=== PATIENT | female | born 1955 | race Caucasian/White ===

== ENCOUNTER 2018-10-08 22:16 | Emergency (ER) | payer BC ==
[2018-10-08] MEDS ORDERED: HYDROmorphone 0.5 MG/0.5 ML SYRINGE IVP STA (22:50)
[2018-10-08] MEDS ORDERED: ETOMIDATE 2 MG/ML 10 ML VIAL IVP STA (23:32)
--- NOTE | 2018-10-08 23:56 | XR ---
EXAM: XR Right Humerus, single view CLINICAL HISTORY: Pain TECHNIQUE: Frontal view of the right humerus. COMPARISON: No relevant prior studies available. FINDINGS: Bones/joints: No acute fracture. Soft tissues: Unremarkable. IMPRESSION: Normal right humerus x-ray.
--- NOTE | 2018-10-08 23:56 | XR ---
EXAM: XR Right Forearm, 2 Views CLINICAL HISTORY: Pain TECHNIQUE: Frontal and lateral views of the right forearm. COMPARISON: No relevant prior studies available. FINDINGS: Bones/joints: Unremarkable. No acute fracture. No dislocation. Soft tissues: Unremarkable. IMPRESSION: Normal right forearm x-rays.
--- NOTE | 2018-10-08 23:57 | XR ---
EXAM: XR Right Shoulder Complete, 2 or More Views CLINICAL HISTORY: Pain TECHNIQUE: Two or more views of the right shoulder. COMPARISON: No relevant prior studies available. FINDINGS: Bones/joints: Anterior dislocation of the shoulder. Question fracture fragment of the humeral head on Y-view. Soft tissues: No soft tissue gas or foreign body. IMPRESSION: Anterior dislocation of the shoulder. Question fracture fragment of the humeral head on Y-view.
--- NOTE | 2018-10-08 23:58 | XR ---
EXAM: XR Right Elbow Complete, 3 or More Views CLINICAL HISTORY: Pain TECHNIQUE: Frontal, lateral and oblique views of the right elbow. COMPARISON: No relevant prior studies available. FINDINGS: Bones/joints: Unremarkable. No acute fracture. No dislocation. Soft tissues: Unremarkable. IMPRESSION: Normal right elbow x-rays.
[2018-10-09] MEDS ORDERED: DIAZEPAM 5 MG/ML 2 ML INJ IVP STA (00:10)
[2018-10-09] MEDS ORDERED: HYDROmorphone 1 MG/ML 1 ML SYRINGE IVP STA (00:10)
--- NOTE | 2018-10-09 00:52 | XR ---
EXAM: XR Right Shoulder Complete, 2 or More Views CLINICAL HISTORY: Pain TECHNIQUE: Two or more views of the right shoulder. COMPARISON: X-ray dated 10/08/2017 at 2309 FINDINGS: Bones/joints: Successful reduction of the previously seen anterior dislocation of the right shoulder. No fracture fragment identified. Soft tissues: Unremarkable. IMPRESSION: Successful reduction of the previously seen anterior dislocation of the right shoulder. No fracture fragment identified.
[2018-10-09] MEDS ORDERED: SODIUM CHLORIDE 0.9% 1,000 ML IV STA (03:14)
[2018-10-09 03:47] LABS: Basophils % (A) 0 %; Eosinophils # (A) 0.1 k/uL (0-0.7); Eosinophils % (A) 1 %; HGB 13.1 gm/dL (11.4-16.0); Lymphocytes # (A) 0.9 k/uL (1.0-4.8); Lymphocytes % (A) 9 %; MCH 29.1 pg (25.0-35.0); MCHC 33.6 g/dL (31.0-37.0); MCV 86.8 fL (80.0-100.0); Mean Platelet Volume 6.9; Monocytes # (A) 0.4 k/uL (0-1.0); Monocytes % (A) 4 %; Neutrophils # (A) 8.3 k/uL (1.3-7.7); Neutrophils % (A) 85 %; Platelet Count 228 k/uL (150-450); RBC 4.49 m/uL (3.80-5.40); RDW 12.4 % (11.5-15.5); WBC 9.8 k/uL (3.8-10.6)
[2018-10-09 03:58] LABS: ALT 35 U/L (9-52); AST 52 U/L (14-36); African American GFR (CKD) >90 (>60 ml/min/1.73 sqM); Albumin 4.3 g/dL (3.5-5.0); Alkaline Phosphatase 83 U/L (38-126); Anion Gap 9 mmol/L; Blood Urea Nitrogen 21 mg/dL (7-17); Carbon Dioxide 26 mmol/L (22-30); Chloride 99 mmol/L (98-107); Glucose 117 mg/dL (74-99); Potassium 4.4 mmol/L (3.5-5.1); Sodium 134 mmol/L (137-145); Total Bilirubin 0.7 mg/dL (0.2-1.3); Total Protein 6.8 g/dL (6.3-8.2)
--- NOTE | 2018-10-09 04:42 | ED ---
General Adult HPI - General Source: patient, EMS, RN notes reviewed, old records reviewed Mode of arrival: EMS Limitations: physical limitation <Americo Winchester - Last Filed: 10/09/18 17:30> <Kt Vasquez - Last Filed: 10/10/18 22:39> - General Chief complaint: Fall Stated complaint: Rt arm injury Time Seen by Provider: 10/08/18 22:38 - History of Present Illness Initial comments: 63-year-old female patient, also history of rheumatoid arthritis, Sjogren's, hypertension presents ED after a slip and fall. Patient was reportedly on her hands and knees washing the floor. When patient went to stand up he slipped falling on her right shoulder and forearm. Patient states that she is not standing at this time, was just starting her ascemt. She denies any trauma to head or neck. Patient primary complaint is right shoulder pain. Denies other complaints at this time. Systemic: Pt denies fatigue, fever/chills, rash. Pt denies weakness, night sweats, weight loss. Neuro: Pt denies headache, visual disturbances, syncope or pre-syncope. HEENT: Pt denies ocular discharge or irritation, otalgia, rhinorrhea, pharyngitis or notable lymphadenopathy. Cardiopulmonary: Pt denies chest pain, SOB, heart palpitations, dyspnea on exertion. Abdominal/GI: Pt denies abdominal pain, n/v/d. : Pt denies dysuria, burning w/ urination, frequency/urgency. Denies new onset urinary or bowel incontinence. MSK: Pt denies myalgia, loss of strength or function in extremities. Neuro: Pt denies new onset weakness. (Americo Winchester) - Related Data Home Medications Medication Instructions Recorded Confirmed Atenolol [Tenormin] 50 mg PO DAILY 05/18/15 05/18/15 Dextroamphetamine/Amphetamine 20 mg PO DAILY PRN 05/18/15 05/20/15 [Adderall] Hydroxychloroquine Sulfate 200 mg PO BID 05/18/15 05/20/15 [Plaquenil] Isosorbide Mononitrate [Isosorbide 30 mg PO DAILY 05/18/15 05/18/15 Mononitrate ER] Pantoprazole Sodium [Protonix] 40 mg PO DAILY 05/18/15 05/18/15 Simvastatin [Zocor] 40 mg PO HS 05/18/15 05/18/15 Aspirin 324 mg PO ONCE 05/20/15 05/20/15 Allergies Allergy/AdvReac Type Severity Reaction Status Date / Time codeine AdvReac Nausea & Verified 05/18/15 14:20 Vomiting Review of Systems ROS Other: All systems not noted in ROS Statement are negative. <Americo Winchester - Last Filed: 10/09/18 17:30> ROS Other: All systems not noted in ROS Statement are negative. <Kt Vasquez - Last Filed: 10/10/18 22:39> ROS Statement: Those systems with pertinent positive or pertinent negative responses have been documented in the HPI. Past Medical History Past Medical History: GERD/Reflux, Hyperlipidemia, Hypertension, Osteoarthritis (OA), Rheumatoid Arthritis (RA) Additional Past Medical History / Comment(s): disc problems in neck, Sjogren's History of Any Multi-Drug Resistant Organisms: None Reported Past Surgical History: Appendectomy, Section, Ear Surgery, Hysterectomy, Orthopedic Surgery Additional Past Surgical History / Comment(s): right rotator cuff repaired, ear surg., vocal cord nodule removed Past Anesthesia/Blood Transfusion Reactions: Motion Sickness, Postoperative Naus ea & Vomiting (PONV) Past Psychological History: ADD/ADHD Smoking Status: Former smoker Past Alcohol Use History: None Reported Past Drug Use History: None Reported - Past Family History Mother Family Medical History: No Reported History <Americo Winchester - Last Filed: 10/09/18 17:30> General Exam Limitations: physical limitation <Americo Winchester - Last Filed: 10/09/18 17:30> - General Exam Comments Initial Comments: Constitutional: NAD, AOX3, Pt has pleasant affect. HEENT: NC/AT, trachea midline, neck supple, no lymphadenopathy. Posterior pharynx non erythematous, without exudates. External ears appear normal, without discharge. Mucous membranes moist. Eyes PERRLA, EOM intact. There is no scleral icterus. No pallor noted. Cardiopulmonary: RRR, no murmurs, rubs or gallops, no JVD noted. Lungs CTAB in anterior and posterior wilson. No peripheral edema. Abdominal exam: Abdomen soft and non-distended. Abdomen non-tender to palpation in all 4 quadrants. Bowel sounds active in LLQ. No hepatosplenomegaly. No ecchymosis Neuro: CN II-XII grossly intact. No nuchal rigidity. No raccon eyes, no delacruz sign, no hemotympanum. No cervical spinal tenderness. MSK: Right shoulder additionally displayed findings consistent with anterior dislocation. Patient does have decreased sensation and forearm and hand. Shoulder was reduced with attending physician Dr. Gardner. Radial pulse +2, cap illary refill <2 seconds. Patient continues to have decreased sensation and forearm and hand as well as decreased ROM of hand and digits. No posterior calf tenderness bilaterally, homans sign negative bilaterally. Posterior tibialis and radial pulse +2 bilaterally. Sensation intact in upper and lower extremities. Full active ROM in lower extremities, 5/5 stregnth. (Americo Winchester) Course Vital Signs 10/08/18 10/09/18 10/09/18 22:18 00:01 00:06 Temperature 97.5 F L Pulse Rate 100 100 96 Respiratory 20 20 20 Rate Blood Pressure 103/64 126/68 132/73 O2 Sat by Pulse 96 99 100 Oximetry 10/09/18 10/09/18 10/09/18 00:10 00:15 00:20 Temperature Pulse Rate 97 96 92 Respiratory 20 11 L 14 Rate Blood Pressure 153/79 96/54 144/78 O2 Sat by Pulse 99 93 L 95 Oximetry 10/09/18 10/09/18 10/09/18 00:36 01:15 01:52 Temperature 97.7 F 98.2 F Pulse Rate 98 90 101 H Respiratory 22 18 18 Rate Blood Pressure 133/78 123/73 124/64 O2 Sat by Pulse 98 97 98 Oximetry 10/09/18 10/09/18 03:33 05:09 Temperature 98.3 F Pulse Rate 100 92 Respiratory 18 16 Rate Blood Pressure 113/68 103/55 O2 Sat by Pulse 98 98 Oximetry Procedures - [place] Protocol (Time Out) Patient Identification (2 identifiers required): Chart, Verbal, Arm Band, Name, Birthdate 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 Patient was reportedly on her hands and knees washing the floor. When patient went to stand up he slipped falling on her right shoulder and forearm. Patient states that she is not standing at this time, was just starting her ascemt. She denies any trauma to head or neck. Patient primary complaint is right shoulder pain. Denies other complaints at this time. Patient vital signs stable, afebrile. Physical exam displayed: Right shoulder additionally displayed findings consistent with anterior dislocation. Patient does have decreased sensation and forearm and hand. Shoulder was reduced with attending physician Dr. Gardner. Radial pulse +2, capillary refill <2 seconds. Patient continues to have decreased sensation and forearm and hand as well as decreased ROM of hand and digits. Initial plain films of shoulder displayed anterior dislocation. Plain film elbow humerus and forearm did not display acute process. Repeat shoulder x-ray displayed successful reduction. CTA of right shoulder displayed no arterial injury, mild stranding noted about the right subclavian/axillary artery vein which may be posttraumatic. Successful postreduction of the previously seen anterior distal patient right shoulder. Flattening suggesting Hill-Sachs deformity. Patient placed in a shoulder sling. Case was discussed with orthopedic consult Dr. Orellana extensively with attending physician Dr. Gardner in regards to patient's range of motion and sensation deficit of hand. Dr. Orellana recommendation was to discharge patient he will see her in office and will continue to evaluate this complaint. Patient discharged in shoulder sling. (Americo Winchester) I saw this patient in conjunction with the physician account assistant. I performed independent history and physical exam. Agree with case management. Given the patient's persistent symptoms following the reduction, PA and myself discuss case and CT angiography the right upper extremity had been ordered. I then discussed case with Dr. Orellana, and the patient will follow in clinic. (Kt Vasquez) - Lab Data Lab Results 10/09/18 10/09/18 Range/Units 03:30 03:30 WBC 9.8 (3.8-10.6) k/uL RBC 4.49 (3.80-5.40) m/uL Hgb 13.1 (11.4-16.0) gm/dL Hct 39.0 (34.0-46.0) % MCV 86.8 (80.0-100.0) fL MCH 29.1 (25.0-35.0) pg MCHC 33.6 (31.0-37.0) g/dL RDW 12.4 (11.5-15.5) % Plt Count 228 (150-450) k/uL Neutrophils % 85 % Lymphocytes % 9 % Monocytes % 4 % Eosinophils % 1 % Basophils % 0 % Neutrophils # 8.3 H (1.3-7.7) k/uL Lymphocytes # 0.9 L (1.0-4.8) k/uL Monocytes # 0.4 (0-1.0) k/uL Eosinophils # 0.1 (0-0.7) k/uL Basophils # 0.0 (0-0.2) k/uL Sodium 134 L (137-145) mmol/L Potassium 4.4 (3.5-5.1) mmol/L Chloride 99 (98-107) mmol/L Carbon Dioxide 26 (22-30) mmol/L Anion Gap 9 mmol/L BUN 21 H (7-17) mg/dL Creatinine 0.75 (0.52-1.04) mg/dL Est GFR (CKD-EPI)AfAm >90 (>60 ml/min/1.73 sqM) Est GFR (CKD-EPI)NonAf 86 (>60 ml/min/1.73 sqM) Glucose 117 H (74-99) mg/dL Calcium 10.0 (8.4-10.2) mg/dL Total Bilirubin 0.7 (0.2-1.3) mg/dL AST 52 H (14-36) U/L ALT 35 (9-52) U/L Alkaline Phosphatase 83 (38-126) U/L Total Protein 6.8 (6.3-8.2) g/dL Albumin 4.3 (3.5-5.0) g/dL Disposition Is patient prescribed a controlled substance at d/c from ED?: No <Americo Winchester - Last Filed: 10/09/18 17:30> <Kt Vasquez - Last Filed: 10/10/18 22:39> Clinical Impression: Anterior shoulder dislocation Disposition: HOME SELF-CARE Condition: Stable Instructions (If sedation given, give patient instructions): Shoulder Dislocation (ED) Additional Instructions: Patient to adhere to previously discussed treatment plan and will take medication(s) as directed. Patient to follow up with PCP in 1-2 days. Patient to return to ED if symptoms do not improve. Continue to wear sling, follow with orthopedic consult tomorrow. Return to ER if condition worsens in any way. Referrals: Ana Maria Brooks MD [Primary Care Provider] - 1-2 days Jeronimo Orellana MD [Medical Doctor] - 1-2 days
--- NOTE | 2018-10-09 04:47 | CT ---
EXAM: CT Angiography of the Right Upper Extremity With Intravenous Contrast CLINICAL HISTORY: Pain TECHNIQUE: Axial computed tomographic angiography images of the right upper extremity with intravenous contrast using CT angiography protocol. CTDI is 0.085, 0.085, 2.4, 15.8 mGy and DLP is 555.3 mGy-cm. This CT exam was performed using one or more of the following dose reduction techniques: automated exposure control, adjustment of the mA and/or kV according to patient size, and/or use of iterative reconstruction technique. MIP reconstructed images were created and reviewed. COMPARISON: No relevant prior studies available. FINDINGS: VASCULATURE: Right subclavian artery: No acute findings. No occlusion or significant stenosis. Right axillary artery: No acute findings. No occlusion or significant stenosis. Right brachial artery: No acute findings. No occlusion or significant stenosis. UPPER EXTREMITY: Bones/joints: Flattening of the posterolateral aspect of the humeral head which may represent Hill-Sachs deformity. No dislocation. Small joint effusion. Soft tissues: Mild stranding noted about the right subclavian/axillary artery vein which may be post traumatic.. No abnormal contrast enhancement. IMPRESSION: 1. No arterial injury. Mild stranding noted about the right subclavian/axillary artery vein which may be post traumatic. 2. Status post successful reduction of the previously seen anterior dislocation of the right shoulder dislocation. Flattening of the posterolateral aspect of the right humeral head suggesting Hill-Sachs deformity.
[2018-10-09 05:19] VITALS: BP 103/55; PULSE 92; RESP 16; TEMP 98.3
--- NOTE | 2018-10-11 04:10 | CDI ---
Documentation Clarification OP Dear Americo ROSE, PAC Please provide Moderate Sedation stop time. Thank you, Марина Huber Movie Actor If you have any questions, please contact Ground Water Pump Installer at [phone] [facility]
== END 2018-10-09 05:36 | disposition home or self-care (01) ==
LOC: EC 22:16
DX: S43.004A Unspecified dislocation of right shoulder joint, initial encounter (principal); K21.9 Gastro-esophageal reflux disease without esophagitis; E78.5 Hyperlipidemia, unspecified; I10 Essential (primary) hypertension; F90.9 Attention-deficit hyperactivity disorder, unspecified type; Z98.890 Other specified postprocedural states; Z87.891 Personal history of nicotine dependence; Z87.39 Personal history of other diseases of the musculoskeletal system and connective tissue; Z79.82 Long term (current) use of aspirin; Z79.899 Other long term (current) drug therapy; Z88.5 Allergy status to narcotic agent; W01.0XXA Fall on same level from slipping, tripping and stumbling without subsequent striking against object, initial encounter; Y92.009 Unspecified place in unspecified non-institutional (private) residence as the place of occurrence of the external cause; Y93.E5 Activity, floor mopping and cleaning
CPT/HCPCS: 99285; 23650; 99152; 99153; 96374; 96376; 96361 ×2; 36415; 80053; 85025; 73020 ×2; 73060; 73070; 73090; 73206; J3360; J1170 ×2; Q9967

== ENCOUNTER 2019-01-30 09:29 | Emergency (ER) | payer BC ==
[2019-01-30 09:42] VITALS: TEMP 97.6
[2019-01-30] MEDS ORDERED: SODIUM CHLORIDE 0.9% 1,000 ML IV ONE (10:10)
[2019-01-30] MEDS ORDERED: ONDANSETRON 4 MG/2 ML VIAL IVP STA (10:10)
[2019-01-30] MEDS ORDERED: SODIUM CHLORIDE 0.9% 1,000 ML IV SCH (10:15)
--- NOTE | 2019-01-30 10:23 | ED ---
Nausea/Vomiting/Diarrhea HPI - General Source: patient Mode of arrival: wheelchair Limitations: no limitations <Viktoriya Vazquez - Last Filed: 01/30/19 14:56> <Neha Reveles - Last Filed: 02/01/19 22:00> - General Chief complaint: Nausea/Vomiting/Diarrhea Stated complaint: nausea Time Seen by Provider: 01/30/19 09:55 - History of Present Illness Initial comments: 63-year-old female with history of hypertension, hyperlipidemia presenting to the emergency department for evaluation of nausea 1 week. Patient states she has had nausea and decreased appetite for the past week. Patient denies vomiting or diarrhea patient denies abdominal pain she states she feels like she is up in her stomach. Patient denies any chest pain or any shortness of breath. Patient denies any headache dizziness or visual changes. Denies back pain dysuria urgency frequency or hematuria. Patient denies fevers. Patient denies any new medications. Remaining review of system negative. (Viktoriya Vazquez) - Related Data Home Medications Medication Instructions Recorded Confirmed Dextroamphetamine/Amphetamine 20 mg PO DAILY PRN 05/18/15 01/30/19 [Adderall] Hydroxychloroquine Sulfate 200 mg PO BID 05/18/15 01/30/19 [Plaquenil] Pantoprazole Sodium [Protonix] 40 mg PO HS 05/18/15 01/30/19 Simvastatin [Zocor] 40 mg PO HS 05/18/15 01/30/19 Escitalopram [Lexapro] 20 mg PO DAILY 01/30/19 01/30/19 Lisinopril [Zestril] 5 mg PO HS 01/30/19 01/30/19 Olopatadine HCl 1 applic BOTH EYES BID PRN 01/30/19 01/30/19 traMADol HCL 50 - 100 mg PO Q6H PRN 01/30/19 01/30/19 Previous Rx's Medication Instructions Recorded Ondansetron Odt [Zofran Odt] 4 mg PO Q8HR PRN 5 Days #15 tab 01/30/19 Allergies Allergy/AdvReac Type Severity Reaction Status Date / Time codeine AdvReac Nausea & Verified 01/30/19 09:39 Vomiting Review of Systems ROS Other: All systems not noted in ROS Statement are negative. <Viktoriya Vazquez - Last Filed: 01/30/19 14:56> ROS Other: All systems not noted in ROS Statement are negative. <Neha Reveles - Last Filed: 02/01/19 22:00> ROS Statement: Those systems with pertinent positive or pertinent negative responses have been documented in the HPI. Past Medical History Past Medical History: GERD/Reflux, Hyperlipidemia, Hypertension, Osteoarthritis (OA), Rheumatoid Arthritis (RA) Additional Past Medical History / Comment(s): disc problems in neck, Sjogren's History of Any Multi-Drug Resistant Organisms: None Reported Past Surgical History: Appendectomy, Section, Ear Surgery, Hysterectomy, Orthopedic Surgery Additional Past Surgical History / Comment(s): right rotator cuff repaired, ear surg., vocal cord nodule removed Past Anesthesia/Blood Transfusion Reactions: Motion Sickness, Postoperative Nausea & Vomiting (PONV) Past Psychological History: ADD/ADHD Smoking Status: Former smoker Past Alcohol Use History: None Reported Past Drug Use History: None Reported - Past Family History Mother Family Medical History: No Reported History <Viktoriya Vazquez - Last Filed: 01/30/19 14:56> General Exam Limitations: no limitations <Viktoriya Vazquez - Last Filed: 01/30/19 14:56> - General Exam Comments Initial Comments: General: The patient is awake and alert, in no distress, and does not appear acutely ill. Eye: +3 mm pupils are equal, round and reactive to light, extra-ocular movements are intact. No nystagmus. There is normal conjunctiva bilaterally. No signs of icterus. Ears, nose, mouth and throat: There are moist mucous membranes and no oral lesions. Neck: The neck is supple, there is no tenderness or JVD. Cardiovascular: There is a regular rate and rhythm. No murmur, rub or gallop is appreciated. Respiratory: Lungs are clear to auscultation, respirations are non-labored, breath sounds are equal. No wheezes, stridor, rales, or rhonchi. Gastrointestinal: Soft, non-distended, non-tender abdomen without masses or organomegaly noted. There is no rebound or guarding present. Musculoskeletal: Normal ROM, no tenderness. Strength 5/5. Sensation intact. Radial pulses equal bilaterally 2+. Neurological: A&O x 3. CN II-XII intact, There are no obvious motor or sensory deficits. Coordination appears grossly intact. Speech is normal. No ataxia Skin: Skin is warm and dry and no rashes or lesions are noted. Psychiatric: Cooperative, appropriate mood & affect, normal judgment. (Viktoriya Vazquez) Course Vital Signs 01/30/19 01/30/19 09:39 11:00 Temperature 97.6 F Pulse Rate 100 101 H Respiratory 18 16 Rate Blood Pressure 122/81 143/80 O2 Sat by Pulse 99 98 Oximetry Medical Decision Making - Lab Data Result diagrams: 01/30/19 10:05 01/30/19 10:05 <Viktoriya Vazquez - Last Filed: 01/30/19 14:56> - Lab Data Result diagrams: 01/30/19 10:01/30/19 10:05 <Neha Reveles - Last Filed: 02/01/19 22:00> - Medical Decision Making 63-year-old female presented for nonspecific nausea x 1 week. Patient has no abdominal pain no focal neurological deficits denies headache. A semistable in cluding electrolytes. No leukocytosis. Patient nausea controlled with Reglan and Zofran. Patient given IV fluids. Patient states she would like to be discharged at this time. I recommend patient follow-up with primary care provider one to 2 days. Patient provided Zofran on discharge return parameters were discussed at length the patient. I discussed the case with attending provider Dr. Reveles-reviewed lab's as well as patient's history. She is agreeable to discharge at this time. (Viktoriya Vazquez) I was available for consultation in the emergency department. The history and physical exam were done by the midlevel provider. I was consulted for the patient's care. I reviewed the case with the midlevel provider and based on their presentation of the patient, I agree with the assessment, medical decision making and plan of care as documented. (Neha Reveles) - Lab Data Lab Results 01/30/19 01/30/19 01/30/19 Range/Units 10:05 10: 10: WBC 5.2 (3.8-10.6) k/uL RBC 4.73 (3.80-5.40) m/uL Hgb 14.1 (11.4-16.0) gm/dL Hct 40.8 (34.0-46.0) % MCV 86.2 (80.0-100.0) fL MCH 29.7 (25.0-35.0) pg MCHC 34.5 (31.0-37.0) g/dL RDW 12.0 (11.5-15.5) % Plt Count 249 (150-450) k/uL Neutrophils % 59 % Lymphocytes % 30 % Monocytes % 5 % Eosinophils % 2 % Basophils % 1 % Neutrophils # 3.0 (1.3-7.7) k/uL Lymphocytes # 1.6 (1.0-4.8) k/uL Monocytes # 0.3 (0-1.0) k/uL Eosinophils # 0.1 (0-0.7) k/uL Basophils # 0.0 (0-0.2) k/uL Sodium 136 L (137-145) mmol/L Potassium 3.9 (3.5-5.1) mmol/L Chloride 104 (98-107) mmol/L Carbon Dioxide 20 L (22-30) mmol/L Anion Gap 12 mmol/L BUN 8 (7-17) mg/dL Creatinine 0.66 (0.52-1.04) mg/dL Est GFR (CKD-EPI)AfAm >90 (>60 ml/min/1.73 sqM) Est GFR (CKD-EPI)NonAf >90 (>60 ml/min/1.73 sqM) Glucose 98 (74-99) mg/dL Calcium 10.8 H (8.4-10.2) mg/dL Total Bilirubin 0.8 (0.2-1.3) mg/dL AST 31 (14-36) U/L ALT 28 (9-52) U/L Alkaline Phosphatase 77 (38-126) U/L Troponin I (0.000-0.034) ng/mL Total Protein 7.3 (6.3-8.2) g/dL Albumin 4.5 (3.5-5.0) g/dL Amylase 56 (30-110) U/L Lipase 117 (23-300) U/L Urine Color Yellow Urine Appearance Cloudy H (Clear) Urine pH 8.0 (5.0-8.0) Ur Specific [place] 1.018 (1.001-1.035) Urine Protein Trace H (Negative) Urine Glucose (UA) Negative (Negative) Urine Ketones 2+ H (Negative) Urine Blood Negative (Negative) Urine Nitrite Negative (Negative) Urine Bilirubin Negative (Negative) Urine Urobilinogen <2.0 (<2.0) mg/dL Ur Leukocyte Esterase Negative (Negative) Urine RBC 2 (0-5) /hpf Urine WBC 2 (0-5) /hpf Ur Squamous Epith Cells 14 H (0-4) /hpf Urine Bacteria Rare H (None) /hpf Urine Mucus Few H (None) /hpf 01/30/19 Range/Units 10:05 WBC (3.8-10.6) k/uL RBC (3.80-5.40) m/uL Hgb (11.4-16.0) gm/dL Hct (34.0-46.0) % MCV (80.0-100.0) fL MCH (25.0-35.0) pg MCHC (31.0-37.0) g/dL RDW (11.5-15.5) % Plt Count (150-450) k/uL Neutrophils % % Lymphocytes % % Monocytes % % Eosinophils % % Basophils % % Neutrophils # (1.3-7.7) k/uL Lymphocytes # (1.0-4.8) k/uL Monocytes # (0-1.0) k/uL Eosinophils # (0-0.7) k/uL Basophils # (0-0.2) k/uL Sodium (137-145) mmol/L Potassium (3.5-5.1) mmol/L Chloride (98-107) mmol/L Carbon Dioxide (22-30) mmol/L Anion Gap mmol/L BUN (7-17) mg/dL Creatinine (0.52-1.04) mg/dL Est GFR (CKD-EPI)AfAm (>60 ml/min/1.73 sqM) Est GFR (CKD-EPI)NonAf (>60 ml/min/1.73 sqM) Glucose (74-99) mg/dL Calcium (8.4-10.2) mg/dL Total Bilirubin (0.2-1.3) mg/dL AST (14-36) U/L ALT (9-52) U/L Alkaline Phosphatase (38-126) U/L Troponin I <0.012 (0.000-0.034) ng/mL Total Protein (6.3-8.2) g/dL Albumin (3.5-5.0) g/dL Amylase (30-110) U/L Lipase (23-300) U/L Urine Color Urine Appearance (Clear) Urine pH (5.0-8.0) Ur Specific [place] (1.001-1.035) Urine Protein (Negative) Urine Glucose (UA) (Negative) Urine Ketones (Negative) Urine Blood (Negative) Urine Nitrite (Negative) Urine Bilirubin (Negative) Urine Urobilinogen (<2.0) mg/dL Ur Leukocyte Esterase (Negative) Urine RBC (0-5) /hpf Urine WBC (0-5) /hpf Ur Squamous Epith Cells (0-4) /hpf Urine Bacteria (None) /hpf Urine Mucus (None) /hpf Disposition Is patient prescribed a controlled substance at d/c from ED?: No Time of Disposition: 11:37 <Viktoriya Vazquez - Last Filed: 01/30/19 14:56> <Neha Reveles - Last Filed: 02/01/19 22:00> Clinical Impression: Nausea Disposition: HOME SELF-CARE Condition: Good Instructions (If sedation given, give patient instructions): Acute Nausea and Vomiting (ED) Additional Instructions: Please use medication as discussed. Please follow-up with family doctor in the next 2 days. Please return to emergency room if the symptoms increase or worsen or for any other concerns. Prescriptions: Ondansetron Odt [Zofran Odt] 4 mg PO Q8HR PRN 5 Days #15 tab PRN Reason: Nausea Referrals: Ana Maria Brooks MD [Primary Care Provider] - 1-2 days
[2019-01-30 10:26] LABS: Basophils % (A) 1 %; Eosinophils # (A) 0.1 k/uL (0-0.7); Eosinophils % (A) 2 %; HCT 40.8 % (34.0-46.0); HGB 14.1 gm/dL (11.4-16.0); Lymphocytes # (A) 1.6 k/uL (1.0-4.8); Lymphocytes % (A) 30 %; MCH 29.7 pg (25.0-35.0); MCHC 34.5 g/dL (31.0-37.0); MCV 86.2 fL (80.0-100.0); Mean Platelet Volume 6.1; Monocytes # (A) 0.3 k/uL (0-1.0); Monocytes % (A) 5 %; Neutrophils % (A) 59 %; Platelet Count 249 k/uL (150-450); RBC 4.73 m/uL (3.80-5.40); WBC 5.2 k/uL (3.8-10.6)
--- NOTE | 2019-01-30 10:29 | XR ---
EXAMINATION TYPE: XR chest 2V DATE OF EXAM: 01/30/2019 COMPARISON: NONE HISTORY: Nausea and chest pain TECHNIQUE: Frontal and lateral views of the chest are obtained. FINDINGS: There is no focal air space opacity, pleural effusion, or pneumothorax seen. Very mild rig ht hemidiaphragm elevation is likely physiologic. The cardiac silhouette size is within normal limit s. The osseous structures are intact. IMPRESSION: No acute cardiopulmonary process.
--- NOTE | 2019-01-30 10:30 | XR ---
EXAMINATION TYPE: XR KUB DATE OF EXAM: 01/30/2019 10:21 AM CLINICAL HISTORY: Nausea TECHNIQUE: Single supine KUB image of the abdomen is obtained. COMPARISON: None. FINDINGS: Scattered areas of air within nondilated large and small bowel. Few air-fluid levels in the nondilated colon. Slight right hemidiaphragm elevation is likely physiologic. There is a very mild S -shaped scoliotic curvature of the visualized lumbar spine. No suspicious calcifications in the abdom en or pelvis. Osseous structures are grossly intact. No dilated bowel. IMPRESSION: Nonobstructive bowel gas pattern. Few air-fluid levels in the nondilated colon can be see n in colonic malabsorption/clinical diarrhea.
[2019-01-30 10:36] LABS: ALT 28 U/L (9-52); AST 31 U/L (14-36); African American GFR (CKD) >90 (>60 ml/min/1.73 sqM); Albumin 4.5 g/dL (3.5-5.0); Alkaline Phosphatase 77 U/L (38-126); Amylase 56 U/L (30-110); Anion Gap 12 mmol/L; Blood Urea Nitrogen 8 mg/dL (7-17); Calcium 10.8 mg/dL (8.4-10.2); Carbon Dioxide 20 mmol/L (22-30); Chloride 104 mmol/L (98-107); Glucose 98 mg/dL (74-99); Non-African American GFR(CKD) >90 (>60 ml/min/1.73 sqM); Potassium 3.9 mmol/L (3.5-5.1); Sodium 136 mmol/L (137-145); Total Bilirubin 0.8 mg/dL (0.2-1.3); Total Protein 7.3 g/dL (6.3-8.2)
[2019-01-30 10:46] LABS: Appearance,Urine Cloudy (Clear); Bacteria,Urine Rare /hpf; Bilirubin,Urine Negative (Negative); Blood,Urine Negative (Negative); Color,Urine Yellow; Glucose,Urine (UA) Negative (Negative); Ketones,Urine 2+ (Negative); Leukocyte Esterase,Urine Negative (Negative); Mucus,Urine Few /hpf; Nitrite,Urine Negative (Negative); Protein,Urine Trace (Negative); RBC,Urine 2 /hpf (0-5); Specific Gravity,Urine 1.018 (1.001-1.035); Squamous Epithelial Cell,Urine 14 /hpf (0-4); Urobilinogen,Urine <2.0 mg/dL (<2.0); WBC,Urine 2 /hpf (0-5)
[2019-01-30] MEDS ORDERED: METOCLOPRAMIDE 5 MG/ML 2 ML VIAL IVP STA (11:44)
[2019-01-30 11:49] VITALS: BP 143/80; PULSE 101; RESP 16
== END 2019-01-30 12:35 | disposition home or self-care (01) ==
LOC: EC 09:29
DX: R11.0 Nausea (principal); K21.9 Gastro-esophageal reflux disease without esophagitis; E78.5 Hyperlipidemia, unspecified; I10 Essential (primary) hypertension; F90.9 Attention-deficit hyperactivity disorder, unspecified type; M06.9 Rheumatoid arthritis, unspecified; M19.90 Unspecified osteoarthritis, unspecified site; Z87.891 Personal history of nicotine dependence; Z88.5 Allergy status to narcotic agent; Z79.891 Long term (current) use of opiate analgesic; Z79.899 Other long term (current) drug therapy; Z90.49 Acquired absence of other specified parts of digestive tract
CPT/HCPCS: 36415; 93005; 80053; 82150; 83690; 84484; 85025; 81001; 71046; 74018; 99284; 96374; 96375; 96361 ×2; J2765; J2405

== ENCOUNTER → 2019-03-07 | Outpatient (CLI) | payer BC ==
--- NOTE | 2019-03-07 16:02 | CT ---
EXAMINATION TYPE: CT abdomen pelvis wo con DATE OF EXAM: 03/07/2019 COMPARISON: None INDICATION: LUQ pain DLP: 804.2 mGycm, Automated exposure control for dose reduction was used. CONTRAST: 0 mL of Isovue 300. Study performed with Oral Contrast TECHNIQUE: Axial images were obtained from above the diaphragm to the pubic rami in the axial plane a t 5 mm thick sections. Reconstructed images are reviewed on the computer in the coronal plane. FINDINGS: Limited CT sections are obtained the lung bases. The lung bases are clear. CT ABDOMEN: Liver: Normal Spleen: Normal Pancreas: Normal Adrenal glands: The adrenal glands are normal. Gallbladder: Normal Kidneys: No masses are evident. No hydronephrosis is present. No cysts are present. No renal stone s are evident. Aorta: Normal Inferior vena cava: Normal. CT PELVIS: Loops of bowel within the abdomen and pelvis are normal. There are loops of bowel which are incom pletely distended or lack oral contrast limiting their evaluation. Appendix: Normal as visualized. Urinary bladder: Normal. Genitourinary structures: Uterus and ovaries are not identified. Osseous structures: No suspicious lytic or sclerotic lesions. IMPRESSIONS: 1. No acute abnormality to account for left lower quadrant pain
== END | disposition home or self-care (01) ==
LOC: RADCTMAIN 10:56
PROVIDERS: ATTEND Family Medicine
DX: R10.9 Unspecified abdominal pain (principal); Z88.5 Allergy status to narcotic agent
CPT/HCPCS: 74176

== ENCOUNTER → 2019-03-08 | Outpatient (CLI) | payer BC ==
--- NOTE | 2019-03-08 09:49 | FL ---
EXAMINATION TYPE: FL UGI air DATE OF EXAM: 03/08/2019 COMPARISON: NONE HISTORY: Long-standing nausea without vomiting. TECHNIQUE: A double contrast UGI study is performed. 1 minute and 14 seconds of fluoroscopy utilized with 41 images saved. FINDINGS: The esophagus shows normal motility and emptying into the stomach. No evidence of hiatal hernia or s tricture noted. The stomach shows normal distensibility and peristalsis with thickened mucosal folds. No evidence of any mass or ulcer disease. Mild degree gastroesophageal reflux was seen during real time performance of this study in the supine position to the level of the distal third of esophagus without Valsalva m aneuver. The duodenal bulb, sweep, and proximal small bowel loops are unremarkable. IMPRESSION: 1. Thickened mucosal folds most commonly related to gastritis. 2. Mild degree gastroesophageal reflux to the distal third of the esophagus.
== END ==
LOC: RADUSWWP 08:43
PROVIDERS: ATTEND Family Medicine
DX: K21.9 Gastro-esophageal reflux disease without esophagitis (principal); K92.89 Other specified diseases of the digestive system
CPT/HCPCS: 74246

== ENCOUNTER → 2019-05-10 | Outpatient (CLI) | payer BC ==
--- NOTE | 2019-05-10 15:30 | NM ---
EXAMINATION TYPE: NM hepatobiliary w EF DATE OF EXAM: 05/10/2019 COMPARISON: NONE INDICATION: Right upper quadrant pain TECHNIQUE: After the intravenous administration of 5.2 mCi Tc 99m Mebrofenin hepatobiliary scintigrap hy is performed. Images were obtained immediately post injection. FINDINGS: There is prompt uptake and excretion of radiotracer by the liver. Extrahepatic ducts are identified at 9 minutes. The gallbladder is visualized within 14 minutes. Small bowel activity is noted within 55 minutes. At one hour 8 ounces of oral ensure plus is given to mimic CCK and gallbladder ejection fraction is c alculated at 58 %, which is in the normal range. (Normal >35% and <80%.). IMPRESSION: 1. Normal hepatobiliary scan
== END | disposition home or self-care (01) ==
LOC: RADNMMAIN 12:49
PROVIDERS: ATTEND Family Medicine
DX: R10.11 Right upper quadrant pain (principal)
CPT/HCPCS: 78226; A9537

== ENCOUNTER → 2019-05-27 | Outpatient (CLI) | payer BC ==
--- NOTE | 2019-05-28 11:17 | NM ---
EXAMINATION TYPE: NM parathyroid w/spect DATE OF EXAM: 05/27/2019 COMPARISON: NONE HISTORY: Hyperthyroidism TECHNIQUE: Following administration of 25.2 mCi Tc99m Sestamibi. Anterior projection images of the neck and ches t were obtained 10 minutes and 3 hours post injection. SPECT images of the neck and chest were obtai roel and reconstructed in three axes. FINDINGS: Thyroid tracer washout: Delayed images demonstrate near-complete tracer washout from the thyroid. Parathyroid uptake: None. The three-hour delayed images do not demonstrate any focal abnormal persist ent uptake in the region of the parathyroid glands to suggest parathyroid adenoma. Normal uptake: There is physiological tracer uptake in the myocardium, liver, salivary glands, and th yroid gland. IMPRESSION: Normal parathyroid imaging study. No evidence for mediastinal uptake to suggest mediastinal parathyro id adenoma
== END | disposition home or self-care (01) ==
LOC: RADNMMAIN 11:13
PROVIDERS: ATTEND Family Medicine
DX: E21.3 Hyperparathyroidism, unspecified (principal); Z88.5 Allergy status to narcotic agent
CPT/HCPCS: 78071; A9500

== ENCOUNTER → 2019-08-21 | Outpatient (CLI) | payer BC ==
--- NOTE | 2019-08-21 16:53 | US ---
EXAMINATION TYPE: US renals and bladder DATE OF EXAM: 08/21/2019 COMPARISON: CT abdomen and pelvis March 07, 2019 CLINICAL HISTORY: R31.9 Hematuria, unspecified. hematuria EXAM MEASUREMENTS: Right Kidney: 9.2 x 5.1 x 4.1 cm Left Kidney: 9.1 x 4.6 x 3.6 cm Technical limitations due to overlying bowel content Right Kidney: no evidence of hydronephrosis Left Kidney: no evidence of hydronephrosis Bladder: appears wnl Bilateral Jets seen: no There is no evidence for hydronephrosis at this point in time. No nephrolithiasis is seen. No luis s are identified on images saved. The urinary bladder is satisfactorily distended. Bilateral ureter al jets are not seen. IMPRESSION: Fairly unremarkable study. Source of hematuria is not identified. If symptoms persist fur ther investigation with CT urogram would be warranted.
== END | disposition home or self-care (01) ==
LOC: RADUSWWP 15:11
PROVIDERS: ATTEND Family Medicine
DX: R31.9 Hematuria, unspecified (principal)
CPT/HCPCS: 76770

== ENCOUNTER → 2019-08-23 | Outpatient (CLI) | payer BC ==
--- NOTE | 2019-08-23 17:08 | CT ---
CT CHEST FOR PULMONARY EMBOLISM. EXAMINATION TYPE: CT angio chest DATE OF EXAM: 08/23/2019 INDICATION: Rt. subclavian stenosis, rule out thoracic outlet syndrome, no radial pulse except when a rm elevated post shoulder dislocation CT DLP: 388.4 mGycm, Automated exposure control for dose reduction was used. CONTRAST: Patient injected with 100 mL of Isovue 370. COMPARISON: None TECHNIQUE: CT of the chest is performed on a spiral scan at 2 mm thick sections. Study is performed with intravenous contrast timed for evaluation for pulmonary embolism. This will limit additional po rtions of the evaluation. 3-D MIP images reconstructed by the technologist are reviewed on the compu ter in the coronal and sagittal planes. FINDINGS: No persistent filling defects are evident to suggest an acute pulmonary embolism. Aorta appears normal. 2 renal arteries are evident. The aorta tapers normally throughout its visualiz ed course. Right subclavian artery contains contrast. This is not close approximation with the clavicle. The bra chial artery may be somewhat small caliber beyond the axillary region. Proximal subclavian branches a ppear unremarkable. No mediastinal or hilar adenopathy enlarged by CT criteria is evident. The ascending aorta diameter at the level of the main pulmonary artery is 2.9 cm. The main pulmonary artery diameter at the bifur cation is 2.2 cm. Small hiatal hernia is present. Lung windows are clear. Limited CT section through the upper abdomen are unremarkable. IMPRESSIONS: 1. The proximal brachial artery on the right appear somewhat diminished in size with a normal-appeari ng right subclavian artery. No suspicious focal stenosis at the level of the clavicle is evident. Barclay bclavian artery to the axillary artery appears normal.
== END | disposition home or self-care (01) ==
LOC: RADCTMAIN 15:04
PROVIDERS: ATTEND Internal Medicine Interventional Cardiology
DX: G54.0 Brachial plexus disorders (principal)
CPT/HCPCS: 71275; Q9967

== ENCOUNTER → 2019-09-18 | Outpatient (CLI) | payer BC ==
[2019-09-18 13:14] LABS: African American GFR (CKD) >90 (>60 ml/min/1.73 sqM); Blood Urea Nitrogen 13 mg/dL (7-17); Non-African American GFR(CKD) >90 (>60 ml/min/1.73 sqM)
--- NOTE | 2019-09-18 14:14 | CT ---
EXAMINATION TYPE: CT urogram wo/w con DATE OF EXAM: 09/18/2019 HISTORY: Gross hematuria. CT DLP: 3970mGycm Automated Exposure Control for Dose Reduction was Utilized. CONTRAST: CT scan of the abdomen and pelvis is performed without oral and without and with IV Contrast, patient injected with 100ml mL of Isovue 300. Urogram protocol with 3-D reconstructed images created on a in dependent workstation and reviewed. COMPARISON: CT abdomen and pelvis March 07, 2019 and older study November 06, 2012. Recent renal ultra sound August 21, 2019. FINDINGS: KUB: Noncontrast images show no renal calculi bilaterally. Postcontrast images show symmetric uptake and excretion without concerning solid or cystic renal mass or hydronephrosis seen bilaterally. Urete rs don't completely opacified making evaluation slightly suboptimal but there is no obvious obstructi ng mass or calculus. Bladder not greatly distended but shows no obvious intraluminal mass or wall thi ckening. LUNG BASES: Persistent mild left basilar linear scarring. LIVER/GB: No significant abnormality is appreciated. PANCREAS: No significant abnormality is seen. SPLEEN: No significant abnormality is seen. ADRENALS: No significant abnormality is seen. KIDNEYS: No significant abnormality is seen. BOWEL: No suspicious small or large bowel dilatation. Mild to moderate prominence of fecal material throughout the colon including rectum. UTERUS/ADNEXA: Uterus surgically absent or markedly atrophic. LYMPH NODES: No greater than 1cm abdominal or pelvic lymph nodes are appreciated. OSSEOUS STRUCTURES: Grade 1 anterolisthesis L4 on L5. OTHER: No significant additional abnormality is seen. IMPRESSION: Source of hematuria is not identified.
== END | disposition home or self-care (01) ==
LOC: RADCTMAIN 12:21
PROVIDERS: ATTEND Urology
DX: R31.0 Gross hematuria (principal); Z88.5 Allergy status to narcotic agent
CPT/HCPCS: 82565; 84520; 74178; 36415; 74400; Q9967

== ENCOUNTER → 2019-12-31 | Outpatient (CLI) | payer BC ==
--- NOTE | 2020-01-01 07:32 | XR ---
EXAMINATION TYPE: XR hand complete RT DATE OF EXAM: 12/31/2019 COMPARISON: NONE HISTORY: Pain TECHNIQUE: Three views are submitted. FINDINGS: The osseous structures are intact. Diffuse osteopenia. Arthropathy of all joint spaces of the phalanx .. IMPRESSION: 1. No definite acute fracture or dislocation if symptoms persist, follow-up study in 7 to 10 days wo uld be suggested. 2. Diffuse osteopenia with significant arthropathy.
--- NOTE | 2020-01-01 07:39 | XR ---
EXAMINATION TYPE: XR wrist complete RT DATE OF EXAM: 12/31/2019 COMPARISON: NONE HISTORY: Pain TECHNIQUE: Four views submitted. FINDINGS: The osseous structures are intact. There is diffuse osteopenia. There is narrowing of the radiocarpal joint and first carpal metacarpal joint. There is a deformity of the scaphoid. IMPRESSION: 1. Deformity of the scaphoid which most likely is chronic. It may related to remote trauma. Correlate with CT scan and point tenderness as clinically warranted. 2. Diffuse arthropathy and diffuse osteopenia.
== END | disposition home or self-care (01) ==
LOC: RAD 17:37
PROVIDERS: ATTEND Family Medicine
DX: M19.041 Primary osteoarthritis, right hand (principal); M85.841 Other specified disorders of bone density and structure, right hand; M19.031 Primary osteoarthritis, right wrist; M21.931 Unspecified acquired deformity of right forearm

== ENCOUNTER → 2020-04-22 | Outpatient (CLI) | payer BC ==
--- NOTE | 2020-04-22 16:56 | MR ---
EXAMINATION TYPE: MR hand RT wo con DATE OF EXAM: 04/22/2020 COMPARISON: Radiograph 12/31/2019 HISTORY: 64-year-old female right hand pain, fall 2018 months ago, unable to move fingers. Pain, swel ling, locking, and limited movement in hand and wrist for 18 months. TECHNIQUE: Multiplanar, multisequence images of the right hand were obtained without IV contrast. FINDINGS: No suspicious bone marrow replacement. There is subchondral osseous edema at the triscaphe joint related to degenerative change. Additional moderate to severe degenerative change at the first CMC joint. There is at least moderate osteoarthritic change within the PIP joints of the fingers. No acute fracture or marginal erosions are identified. No evident bony ankylosis. Mild to moderate tenosynovial fluid seen along the flexor tendons to the second through fifth digits. Small effusion within the second MCP joint. Also within the third and fourth PIP joints. There is diffuse atrophy of the musculature of the hand. Boutonniere's deformities of the fingers. No significant soft tissue swelling. IMPRESSION: 1. Moderate to severe diffuse muscular atrophy and Boutonniere's deformities throughout the fingers. Given the lack of erosive change, which makes an inflammatory arthropathy like RA less likely, consid er neuromuscular disorder related to the patient's reported injury. No bony ankylosis is seen to sugg est a burnt out, chronic RA. 2. Scattered mild to moderate tenosynovial fluid along the flexor tendons of the second through fifth fingers. 3. Moderate to severe OA at the base of the thumb and additional OA at the triscaphe joint. At least moderate osteoarthritic change scattered throughout the PIP joints of the fingers.
== END | disposition home or self-care (01) ==
LOC: RADMRIMAIN 15:21
PROVIDERS: ATTEND Family Medicine
DX: M19.041 Primary osteoarthritis, right hand (principal); M20.021 Boutonniere deformity of right finger(s); M62.541 Muscle wasting and atrophy, not elsewhere classified, right hand

== ENCOUNTER → 2020-04-23 | Outpatient (CLI) | payer BC ==
--- NOTE | 2020-04-23 18:34 | MR ---
Results: Clinical history: Pain and swelling with limited range of motion for 18 months. COMPARISON: Radiographs 12/31/2019. MRI of the right hand 04/22/2020. TECHNIQUE: Routine noncontrast enhanced multiplanar, multisequence MR images were obtained of the r ight wrist. FINDINGS: There are moderate to severe degenerative changes of the triscaphe joint and increased T2 subchondral bone marrow signal. Otherwise scattered mild degenerative changes elsewhere. There is no acute fract ure, dislocation or definite osseous erosions. There is full-thickness tear of the peripheral triangular fibrocartilage complex. There is tearing of the volar and interosseous bands of the scapholunate ligament. There is small amount of fluid in the distal radioulnar and intercarpal joints. The extensor tendons, flexor tendons and carpal tunnel contents are grossly intact. There is demonstration of moderate to marked atrophy of the wrist/hand musculature. Otherwise no acut e soft tissue abnormality. IMPRESSION: No acute abnormality. 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 Tearing of the peripheral TFCC and scapholunate ligament. Redemonstrated moderate to marked atrophy of the wrist/hand. No definite osseous erosions.
== END | disposition home or self-care (01) ==
LOC: RADMRIMAIN 15:17
PROVIDERS: ATTEND Family Medicine
DX: M19.031 Primary osteoarthritis, right wrist (principal); S63.501A Unspecified sprain of right wrist, initial encounter; M89.8X4 Other specified disorders of bone, hand

== ENCOUNTER → 2020-05-07 | Outpatient (CLI) | payer BC ==
--- NOTE | 2020-05-08 07:20 | XR ---
EXAMINATION TYPE: XR chest 2V, XR ribs LT DATE OF EXAM: 05/07/2020 HISTORY: Shortness of breath. COMPARISON: None. TECHNIQUE: Single view of the chest is submitted. FINDINGS: Demonstrated are scattered senescent parenchymal change. There is no evidence for focal infiltrate. The heart is stable. Hilar and mediastinal structures are within normal limits. Degenerative changes are seen of the dorsal spine. IMPRESSION: 1. Chronic changes without evidence for acute pulmonary disease. EXAMINATION TYPE: XR chest 2V, XR ribs LT DATE OF EXAM: 05/07/2020 CLINICAL HISTORY: Pain, Fall Four views of the ribs fail demonstrate evidence for displaced rib fracture or secondary sign of rib fracture. Visualized lungs are clear. No evidence for pneumothorax. IMPRESSION: No displaced rib fractures seen. ICD 10 NO FRACTURE, INITIAL EVALUATION
--- NOTE | 2020-05-08 07:51 | XR ---
EXAMINATION TYPE: XR abdomen 1V DATE OF EXAM: 05/07/2020 COMPARISON: NONE HISTORY: Pain TECHNIQUE: Single supine KUB image of the abdomen is obtained FINDINGS: Small bowel demonstrates no evidence for dilatation or air fluid levels. There is at least moderate fecal stasis. Mild distention of the mid and colonic segment. No convincing evidence for pneumoperitoneum. No unusual calcifications. The lung bases are clear. The osseous structures are intact. IMPRESSION: 1. There is at least moderate fecal stasis. Mild distention of the mid and colonic segment.
== END | disposition home or self-care (01) ==
LOC: RADXRMAIN 16:47
PROVIDERS: ATTEND Family Medicine
DX: K63.89 Other specified diseases of intestine (principal); R19.5 Other fecal abnormalities; R07.81 Pleurodynia; M54.9 Dorsalgia, unspecified
CPT/HCPCS: 71046; 74018

== ENCOUNTER → 2020-05-15 | Outpatient (CLI) | payer BC ==
[2020-05-15 15:59] LABS: Creatine Kinase MB 3.3 ng/mL (0.0-2.4); Troponin I <0.012 ng/mL (0.000-0.034)
[2020-05-16 00:19] LABS: Basophils # (A) 0.06 X 10*3/uL (0.00-0.10); Basophils % (A) 1.4 %; Eosinophils # (A) 0.18 X 10*3/uL (0.04-0.35); Eosinophils % (A) 4.1 %; HCT 42.9 % (37.2-46.3); HGB 14.1 g/dL (12.0-15.0); Lymphocytes % (A) 49.8 %; MCH 29.5 pg (27.0-32.0); MCHC 32.9 g/dL (32.0-37.0); MCV 89.7 fL (80.0-97.0); Mean Platelet Volume 10.7 fL (9.5-12.2); Monocytes # (A) 0.42 X 10*3/uL (0.20-1.00); Monocytes % (A) 9.5 %; Neutrophils # (A) 1.55 X 10*3/uL (1.80-7.70); Platelet Count 263 X 10*3/uL (140-440); RBC 4.78 X 10*6/uL (4.10-5.20); RDW 12.2 % (11.5-14.5); WBC 4.42 X 10*3/uL (4.50-10.00)
[2020-05-16 03:44] LABS: Hemoglobin A1C 5.4 % (4.0-6.0)
[2020-05-16 04:14] LABS: % Iron Saturation 16.28 (12.00-45.00); African American GFR (CKD) 91.6 (60.0-200.0); Albumin 4.7 g/dL (3.80-4.90); Albumin/Globulin Ratio 2.61 (1.60-3.17); Anion Gap 10.1 mmol/L (4.00-12.00); Calcium 10.2 mg/dL (8.7-10.3); Carbon Dioxide 25.9 mmol/L (21.6-31.8); Chol/HDL Ratio 2.05; Globulin 1.8 g/dL (1.6-3.3); LDL Cholesterol,Calculated 71.6 mg/dL (0.0-131.0); Magnesium 2.2 mg/dL (1.5-2.4); Potassium 4.1 mmol/L (3.5-5.5); Total Bilirubin 0.6 mg/dL (0.2-1.2); Total Protein 6.5 g/dL (6.2-8.2); Uric Acid 6.2 mg/dL (2.9-7.7); VLDL Calculation 14.4 mg/dL (5.00-40.00)
[2020-05-16 05:23] LABS: Folate, Serum 16.9 ng/mL
== END | disposition home or self-care (01) ==
LOC: LABWHC1 15:01
PROVIDERS: ATTEND Family Medicine
DX: I10 Essential (primary) hypertension (principal); E78.5 Hyperlipidemia, unspecified; R07.9 Chest pain, unspecified; R53.83 Other fatigue; R10.9 Unspecified abdominal pain
CPT/HCPCS: 36415; 80053; 80061; 82150; 82306; 82550; 82553; 82607; 82746; 83036; 83540; 83550; 83615; 83690; 83735; 84443; 84484; 84550; 85025; 85379; 86038

== ENCOUNTER → 2020-05-22 | Outpatient (CLI) | payer BC ==
--- NOTE | 2020-05-23 05:59 | MR ---
EXAMINATION TYPE: MR abdomen wo/w con DATE OF EXAM: 05/22/2020 COMPARISON: CT abdomen pelvis 09/18/2019 HISTORY: Rectocele, abdominal cramping, pain, spasms CONTRAST: Standard multiplanar, multisequence MRI departmental protocol utilizing 7.5 mL intravenous Gadavist g adolinium contrast. There is 13 mm cyst in the anterior right lobe of the liver. Gallbladder appears normal. The bile heidi ts are not dilated. Spleen is intact. The stomach is intact. There is no evidence of pancreatic mass. Pancreatic duct appears normal. Lung bases show no pleural effusion. There is no sign of pericardial effusion. There is no adrenal mass. Kidneys have normal size. There is no hydronephrosis. There is no sign of r etroperitoneal adenopathy. There is no evidence of a bowel obstruction. The contrast images show no p athologic enhancement. There is normal enhancement of the kidneys. IMPRESSION: Negative MR scan of the abdomen. No adverse change compared to old exam.
== END | disposition home or self-care (01) ==
LOC: RADMRIMAIN 06:10
PROVIDERS: ATTEND Family Medicine
DX: N81.6 Rectocele (principal)
CPT/HCPCS: 74183; A9585

== ENCOUNTER → 2020-06-03 | Outpatient (CLI) | payer BC ==
--- NOTE | 2020-06-04 04:16 | MR ---
EXAMINATION TYPE: MR pelvis wo/w con DATE OF EXAM: 06/03/2020 COMPARISON: CT scan of the abdomen pelvis 09/18/2019 HISTORY: Rectocele CONTRAST: Standard multiplanar, multisequence MRI departmental protocol utilizing 7.5 mL intravenous Gadavist g adolinium contrast. Urinary bladder is intact. There is no evidence of a cystocele. Urethra appears normal. There is some air in the rectum. I do not see evidence of rectal prolapse. There appears to be some prolapse of th e posterior wall of the vagina. There is small amount of free fluid in the pelvis. The hip joints are intact. There is no evidence of a pelvic mass. There is hysterectomy. The sacrum i s intact. Coccyx is intact. I see no bony destructive process. Contrast images show no pathologic enh ancement. IMPRESSION: There is possible prolapse of the posterior wall of the vagina best seen on T1 sagittal image 22 with gadolinium. This should be correlated with the physical exam. No evidence of rectal prolapse or cyst ocele. I do not see a rectocele , herniation of the rectum into the vagina. Exam limited by lack of r ectal contrast.
== END ==
LOC: RADMRIMAIN 20:47
PROVIDERS: ATTEND Family Medicine
DX: Z03.89 Encounter for observation for other suspected diseases and conditions ruled out (principal)
CPT/HCPCS: 72197; A9585

== ENCOUNTER 2023-02-08 09:38 | Observation (INO) | payer MEDICARE, BC ==
[2023-02-08 10:16] LABS: Basophils % (A) 1 %; Eosinophils # (A) 0.3 k/uL (0-0.7); Eosinophils % (A) 6 %; HCT 39.4 % (34.0-46.0); HGB 13.6 gm/dL (11.4-16.0); Lymphocytes # (A) 2.5 k/uL (1.0-4.8); Lymphocytes % (A) 46 %; MCH 30.8 pg (25.0-35.0); MCHC 34.4 g/dL (31.0-37.0); MCV 89.3 fL (80.0-100.0); Mean Platelet Volume 8.4; Monocytes # (A) 0.3 k/uL (0-1.0); Monocytes % (A) 6 %; Neutrophils # (A) 2.1 k/uL (1.3-7.7); Neutrophils % (A) 39 %; Platelet Count 181 k/uL (150-450); RBC 4.41 m/uL (3.80-5.40); RDW 12.7 % (11.5-15.5); WBC 5.3 k/uL (3.8-10.6)
[2023-02-08 10:23] LABS: Partial Thromboplastin Time 24.9 sec (22.0-30.0); Prothrombin Time 10.6 sec (10.0-12.5)
[2023-02-08 10:29] LABS: ALT 21 U/L (4-34); AST 32 U/L (14-36); African American GFR (CKD) >90 (>60 ml/min/1.73 sqM); Alkaline Phosphatase 95 U/L (38-126); Anion Gap 12 mmol/L; Blood Urea Nitrogen 12 mg/dL (7-17); Carbon Dioxide 24 mmol/L (22-30); Chloride 102 mmol/L (98-107); Glucose 98 mg/dL (74-99); Magnesium 1.9 mg/dL (1.6-2.3); Non-African American GFR(CKD) >90 (>60 ml/min/1.73 sqM); Potassium 3.8 mmol/L (3.5-5.1); Sodium 138 mmol/L (137-145); Total Bilirubin 0.7 mg/dL (0.2-1.3); Total Protein 6.6 g/dL (6.3-8.2)
--- NOTE | 2023-02-08 10:42 | XR ---
EXAMINATION TYPE: XR chest 2V DATE OF EXAM: 02/08/2023 10:35 AM COMPARISON: Chest radiographs from 05/07/2020 TECHNIQUE: XR chest 2V Frontal and lateral views of the chest. CLINICAL INDICATION:Female, 67 years old with history of Chest Pain; FINDINGS: Lungs/Pleura: There is no evidence of pleural effusion, focal consolidation, or pneumothorax. Chroni c senescent parenchymal change. Pulmonary vascularity: Unremarkable. Heart/mediastinum: Cardiomediastinal silhouette is prominent in size. Musculoskeletal: No acute osseous pathology. Other findings: Cervical spinal stimulator leads identified. IMPRESSION: No acute cardiopulmonary disease/process.
--- NOTE | 2023-02-08 13:32 | CT ---
EXAMINATION TYPE: CT brain wo con DATE OF EXAM: 02/08/2023 COMPARISON: MRI brain 01/20/2010 HISTORY: confusion, right arm numbness CT DLP: 1138.4 mGycm Automated exposure control for dose reduction was used. FINDINGS: Ventricular system is midline with no evidence of acute intracranial mass effect. No midline shift. T here is a area of low attenuation in the region of the external capsule on the right stable dating ba ck to prior MRI and therefore chronic. Tiny area of remote ischemia in the differential diagnosis. Mild generalized degenerative change. Cerebellar tonsils are low-lying in position at the level of foramen magnum but stable. Orbits are sy mmetric. IMPRESSION: 1. No evidence of acute hemorrhage or mass effect. Correlated with MRI concern for acute ischemia as clinically warranted. 2. Low-lying cerebellar tonsils stable.
[2023-02-08] MEDS ORDERED: NALOXONE 0.4 MG/ML 1 ML VIAL IV PRN (14:08)
--- NOTE | 2023-02-08 14:08 | ED ---
Chest Pain HPI - General Chief Complaint: Chest Pain Stated Complaint: CHEST PAIN Time Seen by Provider: 02/08/23 12:50 Source: patient Mode of arrival: ambulatory Limitations: no limitations - History of Present Illness Initial Comments: 67-year-old female with past history of hypertension, hyperlipidemia presents emergency department with chest pain. Reports that her chest pain started around 3 AM this morning. Describes as a pressure sensation. She took 2 nitro and 324 mg aspirin prior to EMS coming. She states that about 30 minutes after she administered the meds that she had relief of her chest pain. She has no previous cardiac history. She did have cardiac cath in 2016 which showed minimal disease. Denies having any cardiac workup since. She also reports that [place] was [place] [employer] when she became acutely confused. States that she was walking up and down the aisles of [employer] but was unsure where she was going. She also reports that at the same time she had some numbness and tingling in her right arm. Has had a history of weakness in the right arm due to a brachial plexus injury however states that her symptoms were worse than normal. They lasted for approximately an hour and completely resolved and she has not had any return of the symptoms today. Denies history of stroke. No headache or visual changes. No speech deficit. No other alleviating, precipitating modifying factors - Related Data Home Medications Medication Instructions Recorded Confirmed Pantoprazole Sodium [Protonix] 40 mg PO HS 05/18/15 02/08/23 Simvastatin [Zocor] 40 mg PO HS 05/18/15 02/08/23 DULoxetine HCL [Cymbalta] 30 mg PO DAILY 02/08/23 02/08/23 DULoxetine HCL [Cymbalta] 60 mg PO HS 02/08/23 02/08/23 Gabapentin [Neurontin] 400 mg PO TID 02/08/23 02/08/23 estradioL [estradioL (Once Weekly) 1 patch TRANSDERM SUTU 02/08/23 02/08/23 0.1mg Patch] lisinopriL [Zestril] 2.5 mg PO HS 02/08/23 02/08/23 Previous Rx's Medication Instructions Recorded Acetaminophen Tab [Tylenol] 650 mg PO Q6HR PRN tab 02/09/23 Aspirin 81 mg PO DAILY tab 02/09/23 Ibuprofen [Motrin] 400 mg PO TID PRN #90 tab 02/09/23 Lacosamide [Vimpat] 50 mg PO BID #60 tab 02/09/23 traMADol HCl [Ultram] 50 mg PO TID tab 02/09/23 Allergies Allergy/AdvReac Type Severity Reaction Status Date / Time codeine AdvReac Nausea & Verified 02/08/23 13:24 Vomiting Review of Systems ROS Statement: Those systems with pertinent positive or pertinent negative responses have been documented in the HPI. ROS Other: All systems not noted in ROS Statement are negative. Past Medical History Past Medical History: GERD/Reflux, Hyperlipidemia, Hypertension, Osteoarthritis (OA), Rheumatoid Arthritis (RA) Additional Past Medical History / Comment(s): disc problems in neck, Sjogren's History of Any Multi-Drug Resistant Organisms: None Reported Past Surgical History: Appendectomy, Section, Ear Surgery, Hysterectomy, Orthopedic Surgery Additional Past Surgical History / Comment(s): right rotator cuff repaired, ear surg., vocal cord nodule removed Past Anesthesia/Blood Transfusion Reactions: Motion Sickness, Postoperative Nausea & Vomiting (PONV) Past Psychological History: ADD/ADHD Smoking Status: Never smoker Past Alcohol Use History: Rare Past Drug Use History: Marijuana - Past Family History Mother Family Medical History: No Reported History General Exam Limitations: no limitations General appearance: alert, in no apparent distress Head exam: Present: atraumatic, normocephalic, normal inspection Eye exam: Present: normal appearance, PERRL, EOMI. Absent: scleral icterus, conjunctival injection, periorbital swelling ENT exam: Present: normal exam, mucous membranes moist Neck exam: Present: normal inspection. Absent: tenderness, meningismus, lymphadenopathy Respiratory exam: Present: normal lung sounds bilaterally. Absent: respiratory distress, wheezes, rales, rhonchi, stridor Cardiovascular Exam: Present: regular rate, normal rhythm, normal heart sounds. Absent: systolic murmur, diastolic murmur, rubs, gallop, clicks GI/Abdominal exam: Present: soft, normal bowel sounds. Absent: distended, tenderness, guarding, rebound, rigid Extremities exam: Present: normal inspection, full ROM, normal capillary refill. Absent: tenderness, pedal edema, joint swelling, calf tenderness Back exam: Present: normal inspection Neurological exam: Present: alert, oriented X3, CN II-XII intact Psychiatric exam: Present: normal affect, normal mood Skin exam: Present: warm, dry, intact, normal color. Absent: rash Course Vital Signs 02/08/23 02/08/23 02/08/23 09:48 13:53 16:55 Temperature 98.8 F Pulse Rate 98 76 85 Respiratory 18 18 18 Rate Blood Pressure 134/84 110/69 116/64 O2 Sat by Pulse 98 97 97 Oximetry 02/08/23 18:00 Temperature Pulse Rate 82 Respiratory 16 Rate Blood Pressure 108/62 O2 Sat by Pulse 98 Oximetry Chest Pain MDM - MDM Was pt. sent in by a medical professional or institution (, PA, [employer], urgent care, hospital, or residential...) When possible be specific @ -No Did you speak to anyone other than the patient for history (EMS, parent, family, police, friend...)? What history was obtained from this source @ -No Did you review nursing and triage notes (agree or disagree)? Why? @ -I reviewed and agree with nursing and triage notes Were old charts reviewed (outside hosp., previous admission, EMS record, old EKG, old radiological studies, urgent care reports/EKG's, residential records)? Report findings @ -No old charts were reviewed Differential Diagnosis (chest pain, altered mental status, abdominal pain women, abdominal pain men, vaginal bleeding, weakness, fever, dyspnea, syncope, headache, dizziness, GI bleed, back pain, seizure, CVA, palpatations, mental health, musculoskeletal)? @ -Differential Chest Pain: Stable Angina, Unstable Angina, STEMI, NSTEMI Aortic Dissection, Pneumothorax, Musculoskeletal, Esophageal Spasm GERD, Cholecystitis, Pancreatitis, Zoster, this is not meant to be an all-inclusive list. EKG interpreted by me (3pts min.). @ -Yes and demonstrates sinus rhythm with a rate of 89. WA interval 359. QRS 81. QTC of 391. No acute ST segment elevations or depressions X-rays interpreted by me (1pt min.). @ -Yes and demonstrates no acute process CT interpreted by me (1pt min.). @ -Yes and demonstrates no acute intracranial process U/S interpreted by me (1pt. min.). @ -None done What testing was considered but not performed or refused? (CT, X-rays, U/S, labs)? Why? @ -None What meds were considered but not given or refused? Why? @ -None Did you discuss the management of the patient with other professionals (professionals i.e. , PA, [employer], lab, RT, psych nurse, clinical social work aide, link fabric machine operator, teacher, juvenile officer, case mgr)? Give summary @ -Spoke with Dr. lynne for admission Was smoking cessation discussed for >3mins.? @ -No Was critical care preformed (if so, how long)? @ -No Were there social determinants of health that impacted care today? How? (Homelessness, low income, unemployed, alcoholism, drug addiction, transportation, low edu. Level, literacy, decrease access to med. care, [facility], rehab)? @ -No Was there de-escalation of care discussed even if they declined (Discuss DNR or withdrawal of care, Hospice)? DNR status @ -No What co-morbidities impacted this encounter? (DM, HTN, Smoking, COPD, CAD, Cancer, CVA, ARF, Chemo, Hep., AIDS, mental health diagnosis, sleep apnea, morbid obesity)? @ -None Was patient admitted / discharged? Hospital course, mention meds given and route, prescriptions, significant lab abnormalities, going to OR and other pertinent info. @ -Upon arrival patient was placed into room 26. Thorough history and physical exam was performed. IV access is established laboratory says her conducted. Patient has a 12-lead EKG performed which demonstrates no acute ST segment elevation. Laboratory studies are within normal limits. She does go for a CT which demonstrates no intracranial findings. Recommended admission for cardiology and neurology consultation. Patient was agreeable to this. Spoke with Dr. lynne for admission Undiagnosed new problem with uncertain prognosis? @ -yes Drug Therapy requiring intensive monitoring for toxicity (Heparin, Nitro, Insulin, Cardizem)? @ -No Were any procedures done? @ -No Diagnosis/symptom? @ -Acute transient confusion, possible TIA, acute chest pain Acute, or Chronic, or Acute on Chronic? @ -Acute Uncomplicated (without systemic symptoms) or Complicated (systemic symptoms)? @ -Complicated Side effects of treatment? @ -No Exacerbation, Progression, or Severe Exacerbation? @ -No Poses a threat to life or bodily function? How? (Chest pain, [place], [place], pneumonia, PE, COPD, DKA, ARF, appy, cholecystitis, CVA, Diverticulitis, Homicidal, Suicidal, threat to staff... and all critical care pts) @ -No Disposition Clinical Impression: Chest pain, TIA (transient ischemic attack), Right arm weakness Disposition: ADMITTED IP TO THIS [facility] Condition: Good Is patient prescribed a controlled substance at d/c from ED?: No Time of Disposition: 14:08 Decision to Admit Reason: Admit from EC Decision Date: 02/08/23 Decision Time: 14:08
[2023-02-08] MEDS ORDERED: ONDANSETRON 4 MG/2 ML VIAL IVP PRN (15:04)
[2023-02-08] MEDS ORDERED: ALPRAZolam 0.25 MG TAB PO PRN (15:04)
[2023-02-08] MEDS ORDERED: MELATONIN 3 MG TABLET PO PRN (15:04)
[2023-02-08] MEDS ORDERED: LACTULOSE 20 GM/30 ML CUP PO PRN (15:04)
[2023-02-08] MEDS ORDERED: CALCIUM CARBONATE 500 MG CHEWABLE PO PRN (15:04)
[2023-02-08] MEDS ORDERED: ACETAMINOPHEN TAB 325 MG TAB PO PRN (15:04)
[2023-02-08] MEDS: ENOXAPARIN 40 MG/0.4 ML SYRINGE SQ SCH (15:48)
[2023-02-08] MEDS ORDERED: traMADol 50 MG TAB PO SCH (16:00)
[2023-02-08] MEDS: GABAPENTIN 400 MG CAP PO SCH ×2 (16:54→21:08)
[2023-02-08] MEDS ORDERED: IBUPROFEN 400 MG TAB PO PRN (18:48)
--- NOTE | 2023-02-08 18:51 | P.HPIM ---
History of Present Illness H&P Date: 02/08/23 Chief Complaint: Chest pain Very pleasant 67-year-old patient who follows with Dr. Dyson. Patient is accompanied the ER by her at the bedside. Chronic stable medical conditions include GERD, hypertension, hyperlipidemia, osteoporosis, rheumatoid arthritis, Sjogren's, mitral regurgitation. Patient's had chronic injury to the right shoulder and has affected a right brachial plexus, with weakness of the right arm and some contracture of the fingers. Patient does have chronic pain, including the right hand. Hasn't no stimulator. Also takes Cymbalta and Neurontin Motrin. Patient does feel sleepy quite a bit. For quite some time. She therefore takes Adderall. Used to take 30 mg before not down to 15 mg. Sometimes when she is driving she'll forget things. That quickly remembers. Yesterday patient is walking [place] and she walked up and down the same I'll about 4-5 times not knowing which he to go. Was feeling dizzy also. Also felt numbness in the right arm. Which is more than the baseline. In the night patient developed central chest pressure. Rather significant. Patient took 3 nitroglycerin. It settled down half an hour after the last pill. Patient for about 10 days and has decreased appetite. Patient does have chronic perspirat ion. Patient also had some nausea. Denies any prior cardiac history. Does follow Dr. Sales. Last stress test was over 4 years ago. Review of systems: GEN.: Tired EYES: None HEENT: None NECK: None RESPIRATORY: None CARDIOVASCULAR: As above GASTROINTESTINAL: None GENITOURINARY: None MUSCULOSKELETAL: Joint pains including right arm pain right shoulder weakness. LYMPHATICS: None HEMATOLOGICAL: None PSYCHIATRY: None NEUROLOGICAL: Chronic weakness of the right arm because of brachial plexus inj ury. Past medical history to include: GERD, hypertension, hyperlipidemia, osteoarthritis, rheumatoid arthritis, Sjogren syndrome, brachial plexus injury to the right site resulting in weakness of the right arm. Rotator cuff injury. ADD-but now takes Adderall actually r to keep herself awake. Social history: Patient smoked for about 14 years 1 pack a day stopped about 35 years ago. Patient lives with her . Physical examination: VITAL SIGNS: 98.3, 98, 18, 134/84, 98% room air GENERAL: BMI 30.6, reclining but awake not in distress. EYES: Pupils equal. Conjunctiva normal. HEENT: External appearance of nose and ears normal, oral cavity grossly normal. NECK: JVD not raised; masses not palpable. HEART: First and second heart sounds are normal; no edema. LUNGS: Respiratory rate normal; clear to auscultation. ABDOMEN: Soft, nontender, liver spleen not palpable, no masses palpable. PSYCH: Alert and oriented x3; mood and affect normal. MUSCULOSKELETAL: Limited range of motion of right shoulder. Has contracture of the little and ring finger. NEUROLOGICAL: Cranial nerves grossly intact; no facial asymmetry, power and sensation grossly intact. LYMPHATICS: No lymph nodes palpable in the axilla and neck INVESTIGATIONS, reviewed in the clinical context: White count 5.3 hemoglobin 13.6 platelets 181 sodium 138 potassium 3.8 BUN 12 creatinine 0.71 Troponin I's less than 0.0122 EKG tracing personally reviewed by me-normal sinus rhythm. Chest x-ray film personally reviewed by me-borderline cardiomegaly CT brain without contrast: No acute. Assessment and plan: -Patient had an episode that she kept walking up and down in [facility] at [employer] not knowing which are to go. Associated dizziness.: Transient global amnesia 2-D echocardiogram. Carotid Doppler. EEG Consult neurology -Anterior chest wall pain. Cardiac risk factors include hypertension, hyperlip idemia. Possible unstable angina Serial troponins. Telemetry. Cardiology consulted. 2-D echocardiogram. Will need a stress test. -Abnormal sleep cycle vague fullness, disruption of circadian rhythm from patient taking pain medications also taking Adderall. Patient does state at baseline she is always sleepy. Does use Adderall to wake her up. These medicines are taking for her pain. Cutback Ultram to 50 mg every 8. Cutback Motrin to 400 mg 3 times a day when necessary. Stop Adderall. -Chronic pain, especially in the right arm Neurontin 400 mg 3 times a day. Cutback Motrin to 400 mg every 8 when necessary. Cutback Ultram to 50 mg 3 times a day. Cymbalta to continue has a nerve stimulator -GERD Protonix 40 mg daily at bedtime -Essential hypertension Zestril 2.5 mg daily at bedtime -Hyperlipidemia Zocor 40 mg daily at bedtime -Right brachial plexus injury secondary to fall, but some contracture of the right arm in the ulnar distribution. -Primary osteoarthritis and rheumatoid arthritis Continue pain medications -Sjogren syndrome -Full code Care was discussed the patient is at bedside. Questions answered. Consultation to neurology and cardiology. Past Medical History Past Medical History: GERD/Reflux, Hyperlipidemia, Hypertension, Osteoarthritis (OA), Rheumatoid Arthritis (RA) Additional Past Medical History / Comment(s): disc problems in neck, Sjogren's History of Any Multi-Drug Resistant Organisms: None Reported Past Surgical History: Appendectomy, Section, Ear Surgery, Hysterectomy, Orthopedic Surgery Additional Past Surgical History / Comment(s): right rotator cuff repaired, ear surg., vocal cord nodule removed Past Anesthesia/Blood Transfusion Reactions: Motion Sickness, Postoperative Nausea & Vomiting (PONV) Past Psychological History: ADD/ADHD Smoking Status: Never smoker Past Alcohol Use History: Rare Past Drug Use History: Marijuana - Past Family History Mother Family Medical History: No Reported History Medications and Allergies Home Medications Medication Instructions Recorded Confirmed Type Pantoprazole Sodium [Protonix] 40 mg PO HS 05/18/15 02/08/23 History Simvastatin [Zocor] 40 mg PO HS 05/18/15 02/08/23 History traMADol HCL 100 mg PO Q8H 01/30/19 02/08/23 History DULoxetine HCL [Cymbalta] 30 mg PO DAILY 02/08/23 02/08/23 History DULoxetine HCL [Cymbalta] 60 mg PO HS 02/08/23 02/08/23 History Dextroamphetamine/Amphetamine 15 mg PO DAILY 02/08/23 02/08/23 History [Adderall Xr 15 mg Capsule] Gabapentin [Neurontin] 400 mg PO TID 02/08/23 02/08/23 History Ibuprofen [Motrin] 800 mg PO BID PRN 02/08/23 02/08/23 History estradioL [estradioL (Once Weekly) 1 patch TRANSDERM SUTU 02/08/23 02/08/23 History 0.1mg Patch] lisinopriL [Zestril] 2.5 mg PO HS 02/08/23 02/08/23 History Allergies Allergy/AdvReac Type Severity Reaction Status Date / Time codeine AdvReac Nausea & Verified 02/08/23 13:24 Vomiting Physical Exam Vitals: Vital Signs Temp Pulse Resp BP Pulse Ox 02/08/23 13:53 76 18 110/69 97 02/08/23 09:48 98.8 F 98 18 134/84 98 Intake and Output 02/08/23 02/08/23 02/08/23 06:59 14:59 22:59 Other: Weight 80.739 kg Results CBC & Chem 7: 02/08/23 09:54 02/08/23 09:54
--- NOTE | 2023-02-08 20:37 | US ---
EXAMINATION TYPE: US carotid duplex BILAT DATE OF EXAM: 02/08/2023 COMPARISON: NONE CLINICAL INDICATION: Female, 67 years old with history of Some right arm weakness; rt arm weakness TECHNIQUE: Carotid duplex ultrasound examination. Indirect Doppler criteria was utilized. 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 IMPRESSION: No hemodynamically significant internal carotid artery stenosis on either side. Criteria for Assigning % of Stenosis / Diameter reduction (Estimation based on the indirect measurements of the internal carotid artery velocities (ICA PSV). 1. Normal (no stenosis)=ICA PSV < 125 cm/s: ratio < 2.0: ICA EDV<40 cm/s. 2. Less than 50% stenosis=ICA PSV < 125 cm/s: ratio < 2.0: ICA EDV<40 cm/s. 3. 50 to 69% stenosis=ICA PSV of 125 to 230 cm/s: ration 2.0 ? 4.0: ICA EDV 40-100 cm/s. 4. Greater than 70% stenosis to near occlusion= ICA PSV > 230 cm/s: ratio > 4.0: ICA EDV > 100 cm/s. 5. Near occlusion= ICA PSV velocities may be low or undetectable: variable ratio and ICA EDV. 6. Total occlusion=unable to detect flow.
[2023-02-08] MEDS ORDERED: DULoxetine HCL 60 MG CAPSULE.DR PO SCH (21:00)
[2023-02-08] MEDS ORDERED: ATORVASTATIN 20 MG TAB PO SCH (21:00)
[2023-02-08] MEDS ORDERED: PANTOPRAZOLE 40 MG TABLET PO SCH (21:00)
[2023-02-08] MEDS: traMADol 50 MG TAB PO SCH (21:07)
[2023-02-08] MEDS: ASPIRIN 81 MG PO SCH (21:08)
[2023-02-08] MEDS ORDERED: IBUPROFEN 400 MG TAB PO SCH (22:00)
[2023-02-09] MEDS ORDERED: DOBUTamine DRIP for NUC MED 500 MG in DEXTROSE/WATER 1 250ML.BAG IV PRN (07:33)
[2023-02-09 07:58] VITALS: RESP 14
[2023-02-09] MEDS ORDERED: NON FORMULARY DRUG (Dextroamphetamine/Amphetamine [Adderall Xr 15 Mg Capsule] 15 MG Cap.Er PO SCH (09:00)
[2023-02-09] MEDS ORDERED: DULoxetine HCL 30 MG CAPSULE.DR PO SCH (09:00)
[2023-02-09 09:13] LABS: Basophils # (A) 0.05 X 10*3/uL (0.00-0.10); Eosinophils # (A) 0.37 X 10*3/uL (0.04-0.35); Eosinophils % (A) 7.4 %; HCT 38.2 % (37.2-46.3); HGB 12.4 g/dL (12.0-15.0); Immature Grans, Automated 0 %; Lymphocytes # (A) 2.46 X 10*3/uL (0.90-5.00); Lymphocytes % (A) 49.3 %; MCH 29.5 pg (27.0-32.0); MCHC 32.5 g/dL (32.0-37.0); Mean Platelet Volume 10.9 FL (9.5-12.2); Monocytes # (A) 0.43 X 10*3/uL (0.20-1.00); Monocytes % (A) 8.6 %; NRBC Per 100 WBC 0 X 10*3/uL (0.00-0.01); Neutrophils # (A) 1.68 X 10*3/uL (1.80-7.70); Neutrophils % (A) 33.7 %; Platelet Count 195 X 10*3/uL (140-440); RDW 12.5 % (11.5-14.5); WBC 4.99 X 10*3/uL (4.50-10.00)
[2023-02-09] MEDS ORDERED: DOBUTamine DRIP for NUC MED 500 MG/250 ML BAG IV ONE (09:30)
--- NOTE | 2023-02-09 09:30 | P.CRDCN ---
History of Present Illness History of present illness: HISTORY OF PRESENT ILLNESS: This is a 67-year-old female with a past medical history significant for minimal coronary artery disease, hypertension, hyperlipidemia, and former nicotine dependence. Patient follows in the office with Dr. Sales. We have been asked to see the patient in consultation for chest pain. Patient examined at the bedside. Patient states that yesterday she was shopping at [employer] when she began to feel dizzy and had some weakness in her right arm. She states she went home and was sitting down resting when she began to have chest pain. She states the pain was in the middle of her chest and felt like a pressure type sensation. She denied any shortness of breath. She states the pain radiated into her back. She continued to feel dizzy at that time as well. She reports that she took 3 nitro with eventual relief of her chest pain. At the time of examination this morning, patient denies chest pain or pressure. She reports a history of coronary artery disease in her brother and her sister. She states she is scheduled for an outpatient stress test tomorrow. * EKG reveals sinus mechanism with no signs of acute ischemia * Chest xray negative for acute process * CT of the brain: No evidence of acute hemorrhage or mass effect. * Carotid Doppler: No hemodynamically significant internal carotid artery stenosis on either side * Laboratory data: Troponins negative 3 * Current home cardiac medications include lisinopril 2.5 mg at night and simvastatin 40 mg at night * Most recent echocardiogram obtained in December 2019 revealing ejection fraction 55%, [id number] mitral regurgitation, mild aortic regurgitation, and mild tricuspid regurgitation * Cardiac catheterization history: May 2015 revealing minimal coronary artery disease REVIEW OF SYSTEMS: At the time of my exam: CONSTITUTIONAL: Denies fever or chills. HEENT: Denies blurred vision, vision changes, or eye pain. Denies hemoptysis CARDIOVASCULAR: Denies chest pain. Denies orthopnea. Denies PND. Denies palpitations RESPIRATORY: Denies shortness of breath. GASTROINTESTINAL: Denies abdominal pain. Denies nausea or vomiting. HEMATOLOGIC: Denies bleeding disorders. GENITOURINARY: Denies any blood in urine. SKIN: Denies pruitis. Denies rash. PHYSICAL EXAM: VITAL SIGNS: Reviewed. GENERAL: Well-developed in no acute distress. HEENT: Head is normocephalic. Pupils are equal, round. Sclerae anicteric. Mucous membranes of the mouth are moist. Neck supple. No JVD or thyromegaly LUNGS: Respirations even and unlabored. Lungs essentially clear to auscultation bilaterally. HEART: Regular rate and rhythm. S1 and S2 heard. Systolic murmur noted ABDOMEN: Soft. Nondistended. Nontender. EXTREMITIES: Normal range of motion. No clubbing or cyanosis. Peripheral pulses intact. No lower extremity edema NEUROLOGIC: Awake and alert. Oriented x 3. ASSESSMENT: Dizziness with right upper extremity weakness, rule out neurological etiology Chest pain, troponins negative 3 Minimal CAD, per cardiac catheterization 2016 Hypertension Hyperlipidemia Chronic back pain Family history of premature coronary artery disease Former nicotine dependence PLAN: An acute coronary event has been ruled out Obtain 2-D echo to assess cardiac structure and function Resume home cardiac medications Patient to undergo dobutamine stress echo today Neurology has been consulted for evaluation. Await evaluation Further recommendations pending patient's course Nurse practitioner note has been reviewed by physician. Signing provider agrees with the documented findings, assessment, and plan of care. Past Medical History Past Medical History: GERD/Reflux, Hyperlipidemia, Hypertension, Osteoarthritis (OA), Rheumatoid Arthritis (RA) Additional Past Medical History / Comment(s): disc problems in neck, Sjogren's, brochial plexus injury right wrist , carpel tunnel right hand History of Any Multi-Drug Resistant Organisms: None Reported Past Surgical History: Appendectomy, Section, Ear Surgery, Hysterectomy, Orthopedic Surgery Additional Past Surgical History / Comment(s): right rotator cuff repaired, ear surg., vocal cord nodule removed Past Anesthesia/Blood Transfusion Reactions: Motion Sickness, Postoperative Nausea & Vomiting (PONV) Past Psychological History: ADD/ADHD Smoking Status: Never smoker Past Alcohol Use History: Rare Additional Past Alcohol Use History / Comment(s): quit smoking 30 yrs. ago, smoked 1ppd for 14 yrs. Past Drug Use History: Marijuana - Past Family History Mother Family Medical History: No Reported History Medications and Allergies Home Medications Medication Instructions Recorded Confirmed Type Pantoprazole Sodium [Protonix] 40 mg PO HS 05/18/15 02/08/23 History Simvastatin [Zocor] 40 mg PO HS 05/18/15 02/08/23 History traMADol HCL 100 mg PO Q8H 01/30/19 02/08/23 History DULoxetine HCL [Cymbalta] 30 mg PO DAILY 02/08/23 02/08/23 History DULoxetine HCL [Cymbalta] 60 mg PO HS 02/08/23 02/08/23 History Dextroamphetamine/Amphetamine 15 mg PO DAILY 02/08/23 02/08/23 History [Adderall Xr 15 mg Capsule] Gabapentin [Neurontin] 400 mg PO TID 02/08/23 02/08/23 History Ibuprofen [Motrin] 800 mg PO BID PRN 02/08/23 02/08/23 History estradioL [estradioL (Once Weekly) 1 patch TRANSDERM SUTU 02/08/23 02/08/23 History 0.1mg Patch] lisinopriL [Zestril] 2.5 mg PO HS 02/08/23 02/08/23 History Allergies Allergy/AdvReac Type Severity Reaction Status Date / Time codeine AdvReac Nausea & Verified 02/08/23 13:24 Vomiting Physical Exam Vitals: Vital Signs Temp Pulse Pulse Resp BP BP Pulse Ox 02/09/23 07:00 97.5 F L 77 14 103/59 96 02/09/23 02:00 98.2 F 70 16 100/60 95 02/08/23 20:30 98.1 F 102 H 15 102/65 96 02/08/23 18:00 82 16 108/62 98 02/08/23 16:55 85 18 116/64 97 02/08/23 13:53 76 18 110/69 97 02/08/23 09:48 98.8 F 98 18 134/84 98 Intake and Output 02/08/23 02/09/23 02/09/23 22:59 06:59 14:59 Other: # Voids 1 2 Weight 80.739 kg Results 02/09/23 03:53 02/08/23 09:54 Cardiac Enzymes 02/08/23 02/08/23 02/08/23 Range/Units 09:54 09:54 15:04 AST 32 (14-36) U/L Troponin I <0.012 <0.012 (0.000-0.034) ng/mL 02/08/23 Range/Units 18:50 AST (14-36) U/L Troponin I <0.012 (0.000-0.034) ng/mL Coagulation 02/08/23 Range/Units 09:54 PT 10.6 (10.0-12.5) sec APTT 24.9 (22.0-30.0) sec CBC 02/08/23 02/09/23 Range/Units 09:54 03:53 WBC 5.3 4.99 (3.8-10.6) k/uL RBC 4.41 4.20 (3.80-5.40) m/uL Hgb 13.6 12.4 (11.4-16.0) gm/dL Hct 39.4 38.2 (34.0-46.0) % Plt Count 181 195 (150-450) k/uL Comprehensive Metabolic Panel 02/08/23 Range/Units 09:54 Sodium 138 (137-145) mmol/L Potassium 3.8 (3.5-5.1) mmol/L Chloride 102 (98-107) mmol/L Carbon Dioxide 24 (22-30) mmol/L BUN 12 (7-17) mg/dL Creatinine 0.71 (0.52-1.04) mg/dL Glucose 98 (74-99) mg/dL Calcium 10.0 (8.4-10.2) mg/dL AST 32 (14-36) U/L ALT 21 (4-34) U/L Alkaline Phosphatase 95 (38-126) U/L Total Protein 6.6 (6.3-8.2) g/dL Albumin 4.0 (3.5-5.0) g/dL Current Medications Generic Name Dose Route Start Last Admin Trade Name Freq PRN Reason Stop Dose Admin Acetaminophen 650 mg 02/08/23 15:04 Acetaminophen Tab 325 Mg Tab PO Q6HR PRN Mild Pain or Fever > 100.5 Aspirin 81 mg 02/08/23 18:45 02/08/23 21:08 Aspirin 81 Mg PO 81 mg DAILY GLADIS Administration Atorvastatin Calcium 20 mg 02/08/23 21:00 02/08/23 21:08 Atorvastatin 20 Mg Tab PO 20 mg HS GLADIS Administration Calcium Carbonate/Glycine 1,000 mg 02/08/23 15:04 Calcium Carbonate 500 Mg Chewable PO Q4HR PRN Dyspepsia Duloxetine HCl 30 mg 02/09/23 09:00 Duloxetine Hcl 30 Mg Capsule. PO DAILY GLADIS Duloxetine HCl 60 mg 02/08/23 21:00 02/08/23 21:08 Duloxetine Hcl 60 Mg Capsule.Dr PO 60 mg HS GLADIS Administration Enoxaparin Sodium 40 mg 02/08/23 15:15 02/08/23 15:48 Enoxaparin 40 Mg/0.4 Ml Syringe SQ Not Given DAILY GLADIS Gabapentin 400 mg 02/08/23 16:00 02/08/23 21:08 Gabapentin 400 Mg Cap PO 400 mg TID GLADIS Administration Dobutamine HCl/Dextrose 500 mg 250 mls @ 24.222 mls/hr 02/09/23 07:33 / IV Solution IV 02/09/23 11:33 .[id number] PRN Per Protocol Protocol 10 MCG/KG/MIN Ibuprofen 400 mg 02/08/23 18:48 Ibuprofen 400 Mg Tab PO TID PRN Pain Lactulose 20 gm 02/08/23 15:04 Lactulose 20 Gm/30 Ml Cup PO DAILY PRN Constipation Lisinopril 2.5 mg 02/08/23 21:00 02/08/23 21:08 Lisinopril 2.5 Mg Tab PO 2.5 mg HS GLADIS Administration Melatonin 3 mg 02/08/23 15:04 Melatonin 3 Mg Tablet PO HS PRN Insomnia Naloxone HCl 0.2 mg 02/08/23 14:08 Naloxone 0.4 Mg/Ml 1 Ml Vial IV Q2M PRN Opioid Reversal Non Formulary Drug ( 1 patch 02/12/23 09:00 Estradiol [Estradiol TRANSDERM 0.1mg Patch] 1 Each [facility] Patch) Ondansetron HCl 4 mg 02/08/23 15:04 Ondansetron 4 Mg/2 Ml Vial IVP Q8HR PRN Nausea And Vomiting Pantoprazole Sodium 40 mg 02/08/23 21:00 02/08/23 21:08 Pantoprazole 40 Mg Tablet PO 40 mg HS GLADIS Administration Tramadol HCl 50 mg 02/08/23 22:00 02/08/23 21:07 Tramadol 50 Mg Tab PO 50 mg TID GLADIS Administration Intake and Output 02/08/23 02/09/23 02/09/23 22:59 06:59 14:59 Other: # Voids 1 2 Weight 80.739 kg 02/09/23 03:53 02/08/23 09:54
[2023-02-09] MEDS: traMADol 50 MG TAB PO SCH ×2 (10:15→16:55)
[2023-02-09] MEDS: ENOXAPARIN 40 MG/0.4 ML SYRINGE SQ SCH (10:16)
[2023-02-09] MEDS: GABAPENTIN 400 MG CAP PO SCH ×2 (10:16→16:55)
[2023-02-09] MEDS: ASPIRIN 81 MG PO SCH (10:16)
--- NOTE | 2023-02-09 11:30 | CA ---
Transthoracic Echo Report Name: Nova Cazares Age: 67 Gender: F : 1955 Exam Date: 02/09/2023 09:48 Exam Location: [facility] Ht (in): 64 Wt (lb): 186 Ordering Physician: Igor Mike MD Attending/Referring Phys: Desktop Publishing Specialist Kadi Vela RDCS Procedure CPT: Indications: Chest Pain Cardiac Hx: Technical Quality: Fair Contrast 1: Total Dose (mL): Contrast 2: Total Dose (mL): MEASUREMENTS (Male / Female) Normal Values 2D ECHO LV Diastolic Diameter PLAX 3.8 cm 4.2 - 5.9 / 3.9 - 5.3 cm LV Systolic Diameter PLAX 2.6 cm IVS Diastolic Thickness 0.7 cm 0.6 - 1.0 / 0.6 - 0.9 cm LVPW Diastolic Thickness 0.9 cm 0.6 - 1.0 / 0.6 - 0.9 cm LV Relative Wall Thickness 0.4 RV Internal Dim ED PLAX 3.2 cm LA Volume 46.4 cm??? 18 - 58 / 22 - 52 cm??? LA Volume Index 23.4 cm???/m??? 16 - 28 cm???/m??? M-MODE Aortic Root Diameter MM 2.0 cm LA Systolic Diameter MM 3.3 cm LA Ao Ratio MM 1.6 AV Cusp Separation MM 1.0 cm DOPPLER AV Peak Velocity 155.6 cm/s AV Peak Gradient 9.7 mmHg AV Mean Velocity 102.9 cm/s AV Mean Gradient 4.9 mmHg AV Velocity Time Integral 27.0 cm LVOT Peak Velocity 98.0 cm/s LVOT Peak Gradient 3.8 mmHg LVOT Velocity Time Integral 17.4 cm MV Area PHT 4.0 cm??? Mitral E Point Velocity 76.2 cm/s Mitral A Point Velocity 128.8 cm/s Mitral E to A Ratio 0.6 MV Deceleration Time 190.7 ms MV E' Velocity 6.5 cm/s Mitral E to MV E' Ratio 11.7 TR Peak Velocity 233.5 cm/s TR Peak Gradient 21.8 mmHg Right Ventricular Systolic Press 26.8 mmHg FINDINGS Left Ventricle Normal Left ventricular size, wall thickness, systolic function with no obvious regional wall motion abnormalities. Normal Left ventricular diastolic filling pattern. Left ventricular ejection fraction is estimated at 55-60 %. Right Ventricle Normal right ventricular size and function. Right ventricular systolic pressure within normal limits. Right Atrium Normal right atrial size. Left Atrium Normal left atrial size. Mitral Valve Structurally normal mitral valve. Mild mitral regurgitation. Aortic Valve No aortic valve stenosis or regurgitation. Tricuspid Valve Structurally normal tricuspid valve. Mild tricuspid regurgitation. Pulmonic Valve Structurally normal pulmonic valve. Pericardium No pericardial effusion. Aorta Normal size aortic root and proximal ascending aorta. CONCLUSIONS 1. Normal left ventricular size and systolic function 2. Mild mitral and tricuspid regurgitation Previewed by: Dr. Mckenzie Paulino MD (Electronically Signed) Final Date: 09 February 2023 11:29
--- NOTE | 2023-02-09 11:39 | CA ---
Dobutamine Stress Echocardiogram Report Nova Cazares Age: 67 Gender: F : 1955 Exam Date: 02/09/2023 09:26 Exam Location: [facility] Ordering Physician: Karen Soto Referring Physician: [id number] [employer] Good[employer] Machine Operator: Kadi Vela RDCS Technologist: Ht (in): 64 Wt (lb): 178 Procedure CPT: Indication: CP ICD-9 Codes: Rhythm: Patient History: CHEST PAIN, PALPITATIONS, NUMBNESS IN FACE/NECK, HTN, ELEVATEDC CHOLESTEROL LEVELS, FAMILY HX OF HEART DISEASE, FORMER SMOKER Cardiac Medications: Medications in past 24 hours: Contrast: Definity Total Dose (mL): Stress Results Protocol: Dobutamine Peak Dose (???g/kg/min): 30 Duration (min:sec): Atropine:(mg) None Target HR: 132 Double Product: 00723 Resting HR: 72 Resting BP: 107 / 53 Peak HR: 146 Peak BP: 107 / 53 Max Predicted HR: 155 94 % Max Predicted HR Stress Summary: BP Response: Reason for Termination: Target HR Cardiac Symptoms: NO SYMPTOMS ECG Analysis Resting EKG: Normal sinus rhythm, normal ECG Stress EKG: Normal left Normal electrocardiographic response to dobutamine infusion Arrhythmia: None Echo Analysis Base Echo Analysis: Normal resting echocardiogram. Low Echo Anaylsis: Normal wall motion Peak Echo Analysis: Normal wall thickening and motion without any hypokinesis or dyskinesisn no echocardiographic evidence of myocardial ischemia. Recovery Echo: Normal wall motion MEASUREMENTS (Male/Female) Normal Values CONCLUSIONS Normal echocardiographic response to dobutamine infusion Normal electrocardiographic response to dobutamine infusion Dr. Mckenzie Paulino MD (Electronically Signed) Final Date: 09 February 2023 11:38
--- NOTE | 2023-02-09 11:45 | P.CNNES ---
History of Present Illness Consult date: 02/09/23 Requesting physician: Neha Reveles Reason for Consult: transient confusion and right upper extremity weakness History of Present Illness: This is a 67-year-old woman who presented emergency department because of chest pain and episode of confusion. This is compared with her was at bedside. According to patient about 2 days ago she had an episode where she had confusion and just felt off and episode lasted about 30 minutes and this happen during the afternoon. Later she had chest pain. She denies of any headache, visual disturbance, any focal weakness. Denies any history of seizure. According to patient's he stated that all she is sleeping she'll thrash moving all extremities sporadically. He denies any history of seizures. She have a spinal stimulator follows up with a neurologist as an outpatient Dr. Hester. Vision had multiple falls in the last 10-12 years and her last fall was about 4 years ago in which she injured her right shoulder and was told she had right brachial injury. She has a wrist splints that she wears as a result and has numbness and weakness over the right upper extremity residual from the injury. Again her last fall was about 4 years ago. 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 She denies any family history of high arched feet or any family history of neuropathy. Patient denies any history of diabetes. She denies off the any mild or significant back pain. She'll have minimal transient back pain. She was told she had the weakness in her ankles with eversion and that would lead to fall. Patient denies any family history of high arched feet or any neuropathy sibling- garcia or any family members that she is aware of. Some other workup during his hospital visit consisted of: Chemistry panel was unremarkable Carotid duplex is reported as no hemodynamically significant internal carotid artery stenosis on either side. CT of the head is reported as no evidence of acute hemorrhage or mass effect. Correlate with MRI concerning for acute ischemia is chronically warranted. Low- lying cerebellar tonsil stable 2-D echo was reported as normal left ventricle size and systolic function. Mild mitral and tricuspid regurgitation. Review of Systems Review of system: The 12 point system was reviewed and apparent positive and negative per HPI. Past Medical History Past Medical History: GERD/Reflux, Hyperlipidemia, Hypertension, Osteoarthritis (OA), Rheumatoid Arthritis (RA) Additional Past Medical History / Comment(s): disc problems in neck, Sjogren's, brochial plexus injury right wrist , carpel tunnel right hand History of Any Multi-Drug Resistant Organisms: None Reported Past Surgical History: Appendectomy, Section, Ear Surgery, Hysterectomy, Orthopedic Surgery Additional Past Surgical History / Comment(s): right rotator cuff repaired, ear surg., vocal cord nodule removed Past Anesthesia/Blood Transfusion Reactions: Motion Sickness, Postoperative Nausea & Vomiting (PONV) Past Psychological History: ADD/ADHD Smoking Status: Never smoker Past Alcohol Use History: Rare Additional Past Alcohol Use History / Comment(s): quit smoking 30 yrs. ago, smoked 1ppd for 14 yrs. Past Drug Use History: Marijuana - Past Family History Mother Family Medical History: No Reported History Medications and Allergies Home Medications Medication Instructions Recorded Confirmed Type Pantoprazole Sodium [Protonix] 40 mg PO HS 05/18/15 02/08/23 History Simvastatin [Zocor] 40 mg PO HS 05/18/15 02/08/23 History traMADol HCL 100 mg PO Q8H 01/30/19 02/08/23 History DULoxetine HCL [Cymbalta] 30 mg PO DAILY 02/08/23 02/08/23 History DULoxetine HCL [Cymbalta] 60 mg PO HS 02/08/23 02/08/23 History Dextroamphetamine/Amphetamine 15 mg PO DAILY 02/08/23 02/08/23 History [Adderall Xr 15 mg Capsule] Gabapentin [Neurontin] 400 mg PO TID 02/08/23 02/08/23 History Ibuprofen [Motrin] 800 mg PO BID PRN 02/08/23 02/08/23 History estradioL [estradioL (Once Weekly) 1 patch TRANSDERM SUTU 02/08/23 02/08/23 History 0.1mg Patch] lisinopriL [Zestril] 2.5 mg PO HS 02/08/23 02/08/23 History Allergies Allergy/AdvReac Type Severity Reaction Status Date / Time codeine AdvReac Nausea & Verified 02/08/23 13:24 Vomiting Physical Examination - Vital Signs Vital Signs: Vital Signs Temp Pulse Pulse Resp BP BP Pulse Ox 02/09/23 07:00 97.5 F L 77 14 103/59 96 02/09/23 02:00 98.2 F 70 16 100/60 95 02/08/23 20:30 98.1 F 102 H 15 102/65 96 02/08/23 18:00 82 16 108/62 98 02/08/23 16:55 85 18 116/64 97 02/08/23 13:53 76 18 110/69 97 Intake and Output 02/08/23 02/09/23 02/09/23 22:59 06:59 14:59 Other: Voiding Method Toilet # Voids 1 2 Weight 80.739 kg GENERAL: The patient is lying in bed and is not in acute distress. NEUROLOGICAL: Higher mental function: The patient is awake, alert, oriented to self, place and time. Patient is following commands. No aphasia and no neglect. Cranial nerves: The pupils are round, equal and reactive to light and acc ommodation. Visual wilson are full to confrontation throughout. Extraocular movement is intact no nystagmus is noted. Facial sensation is normal to touch throughout. The facial strength is normal throughout. Hearing is normal bilaterally to hand rub. Tongue is midline and moved [id number] without any difficulty. No dysarthria is noted. Shoulder shrug is normal bilaterally. Motor: The strength is right upper extremity is 4-4+, right hand is 3 with increased tone of the right hand. Ankles R/L: dorsiflexion 4+ to 5-, plantar flexion is 5, eversion 2-3, inversion 4/4. Otherwise 5/5 throughout. Increase tone right hand. Very high arched feet bilaterally. Cerebellum: Normal finger to nose bilaterally. Sensation: Decrease sensation to touch over the right upper (old). Reflexes (right/left): Biceps 1/2; triceps0-1; brachioradialis 0/2; patellar3/3; ankles0-1. Plantars are mute bilaterally. 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 According to the he states while she is asleep she'll flail all extremities sporadically. Patient had a spinal cord stimulator. Episode of confusion rule out underlying seizure Very High arched feet with multiple falls and on examination has weakness of the ankles (eversion >inversion and has some ankle dorsiflexion weakness): I'm concerned about neuropathy such as Charcot Aby Tooth disease. Rule out other causes of neuropathy. Acute chest pain Recurrent falls with last fall about 4 days ago and as a result had right brachial injury with residual right upper extremity weakness with numbness. Plan: An EEG is ordered is pending. If EEG is negative for seizures would recommend a prolonged EEG or sleep deprived EEG since has abnormal movement of extremities. Unsure if seizure or sleep disorder. I ordered TSH, vitamin B12, folate, ammonia level, hemoglobin A1c. I recommend the patient to follow-up with the neuromuscular specialist as an outpatient for further evaluation of possible Oofzrrh-Xhzyi-Llnio disease and recommend EMG with nerve conduction study of the lowers as well as imaging of the lower back such as MRI lumbar spine as an outpatient that is MRI compatible for spinal cord stimulator. Radiology was on board We'll defer the rest of the medical management to primary team The plan discussed with the patient, her was at bedside. Thank you consultation. Time with Patient: Greater than 30
[2023-02-09 13:15] LABS: BUN/Creat Ratio 9.25 Ratio (12.00-20.00); Blood Urea Nitrogen 7.4 mg/dL (9.0-27.0); Calcium 9.8 mg/dL (8.7-10.3); Carbon Dioxide 25.2 mmol/L (21.6-31.8); Chloride 105 mmol/L (96-109); Glucose 95 mg/dL (70-110); Potassium 3.5 mmol/L (3.5-5.5); Sodium 142 mmol/L (135-145)
[2023-02-09 14:27] VITALS: BP 100/65; PULSE 92; TEMP 98
--- NOTE | 2023-02-09 15:34 | EEG ---
ELECTROENCEPHALOGRAM REPORT CLINICAL HISTORY: This is a 67-year-old woman with altered mental status. The video EEG is obtained to evaluate for seizure epileptiform activity. RELEVANT MEDICATIONS: Gabapentin and Cymbalta. EEG TYPE: This is a routine 21-channel EEG with video using the 10/20 electrode placement system. DESCRIPTION: Wakefulness is only obtained. During awake state, the posterior-dominant rhythm consists of [id number] voltage of 10 to 11 hertz activity that is well modulated, well sustained. There was no physiological stage 2 sleep architecture. There is no focal slowing. Interictal and ictal: There are some sharply contoured activity over the left posterior quadrant and it seems mostly over the occipital. No seizures noted during the study. ACTIVATION PROCEDURE: Photic stimulation did evoke a posterior driving response at low flash frequency. There is no abnormality during the photic stimulation. Hyperventilation is not performed. CLINICAL INTERPRETATION: This is an abnormal routine EEG. There is some sharply contoured activity over the left posterior quadrant/occipital region and can cause cortical irritability and possible tendency for seizure. No seizure noted during the study. The background is normal. No focal slowing. Considering repeat EEG down the line for further evaluation. Clinical correlation is recommended. MMODL / IJN: [id number] / NARAYAN
--- NOTE | 2023-02-09 18:11 | P.DS ---
Providers Date of admission: 02/08/23 14:08 Expected date of discharge: 02/09/23 Attending physician: Igor Mike Consults: 02/08/23 14:08 Consult Physician Urgent Consulting Provider: Emerson Zhou Consult Reason/Comments: Transient confusion and right upper extremity weakness, possible TIA Do you want consulting provider notified?: Yes Consult Physician Urgent Consulting Provider: [facility] Consult Reason/Comments: acute chest pain Do you want consulting provider notified?: Yes Primary care physician: Arsenio Havenwyck Hospital Course: Chief Complaint: Chest pain Very pleasant 67-year-old patient who follows with Dr. Dyson. Patient is accompanied the ER by her at the bedside. Chronic stable medical conditions include GERD, hypertension, hyperlipidemia, osteoporosis, rheumatoid arthritis, Sjogren's, mitral regurgitation. Patient's had chronic injury to the right shoulder and has affected a right brachial plexus, with weakness of the right arm and some contracture of the fingers. Patient does have chronic pain, including the right hand. Hasn't no stimulator. Also takes Cymbalta and Neurontin Motrin. Patient does feel sleepy quite a bit. For quite some time. She therefore takes Adderall. Used to take 30 mg before not down to 15 mg. Sometimes when she is driving she'll forget things. That quickly remembers. Yesterday patient is walking in [employer] and she walked up and down the same I'll about 4-5 times not knowing which he to go. Was feeling dizzy also. Also felt numbness in the right arm. Which is more than the baseline. In the night patient developed central chest pressure. Rather significant. Patient took 3 nitroglycerin. It settled down half an hour after the last pill. Patient for about 10 days and has decreased appetite. Patient does have chronic perspiration. Patient also had some nausea. Denies any prior cardiac history. Does follow Dr. Sales. Last stress test was over 4 years ago. 02/19/2023: Dobutamine stress echocardiogram came back negative. EEG showed some sharp waves this was discussed with Dr. Zhou from neurology. Started on Vimpat. Discussed with patient and not to drive and seizure precautions. Ultram cutback to 50 mg 3 times a day. Motrin cutback to 400 mg 3 times a day when necessary. Adderall discontinued. Patient will follow-up with her neurologist Dr. Valero, who sees her for pain management. There is a concern by Dr. Zhou patient having [id number]. Patient does have in the past multiple surgery for flat feet. Patient to have outpatient EMG/nerve conduction studies and MRI lumbar spine etc. Patient also follow-up with a neuromuscular specialist. Sleep hygiene and mindfulness discussed. does report that sometimes noted the patient operated lower limb sometimes jerking. during sleep. Patient to continue taking her B12 supplement that she takes at home. All discussed with the patient and her . Questions answered. Discussion and discharge planning more than 35 minutes Past medical history to include: GERD, hypertension, hyperlipidemia, osteoarthritis, rheumatoid arthritis, Sjogren syndrome, brachial plexus injury to the right site resulting in weakness of the right arm. Rotator cuff injury. ADD-but now takes Adderall actually r to keep herself awake. Social history: Patient smoked for about 14 years 1 pack a day stopped about 35 years ago. Patient lives with her . Physical examination: VITAL SIGNS: 98, 92, 14, 100/65, 95% room air GENERAL: Reclining in bed, comfortable EYES: Pupils equal. Conjunctiva normal. HEENT: External appearance of nose and ears normal, oral cavity grossly normal. NECK: JVD not raised; masses not palpable. HEART: First and second heart sounds are normal; no edema. LUNGS: Respiratory rate normal; clear to auscultation. ABDOMEN: Soft, nontender, liver spleen not palpable, no masses palpable. PSYCH: Alert and oriented x3; mood and affect normal. MUSCULOSKELETAL: Limited range of motion of right shoulder. Has contracture of the little and ring finger. INVESTIGATIONS, reviewed in the clinical context: EEG: Abnormal: Some sharply contoured activity over the left posterior quadrant that appears occipital and can cause cortical irritability and possible tendency for seizure. Carotid Doppler: Unremarkable 2-D echocardiogram: EF 50-60%. Dobutamine stress echocardiogram: Negative for ischemia Folate 16.6 TSH 0.742 White count 5.3 hemoglobin 13.6 platelets 181 sodium 138 potassium 3.8 BUN 12 creatinine 0.71 Troponin I's less than 0.0122 EKG tracing personally reviewed by me-normal sinus rhythm. Chest x-ray film personally reviewed by me-borderline cardiomegaly CT brain without contrast: No acute. Assessment and plan: -Abnormal EKG with possible abnormal activity that can cause tendency for seizure Vimpat 50 mg twice a day. Follow-up with her neurologist -Abnormal's sleep hygiene Discussed patient. Sleep hygiene discussed. -Anterior chest wall pain. Cardiac risk factors include hypertension, hyperlipidemia. Possible unstable angina Serial troponins. Telemetry. Cardiology consulted. 2-D echocardiogram and dobutamine stress echocardiogram unremarkable -Abnormal sleep cycle vague fullness, disruption of circadian rhythm from patient taking pain medications also taking Adderall. Patient does state at baseline she is always sleepy. Does use Adderall to wake her up. These medicines are taking for her pain. Cutback Ultram to 50 mg every 8. Cutback Motrin to 400 mg 3 times a day when necessary. Stop Adderall. -Chronic pain, especially in the right arm Neurontin 400 mg 3 times a day. Cutback Motrin to 400 mg every 8 when necessary. Cutback Ultram to 50 mg 3 times a day. Cymbalta to continue has a nerve stimulator -GERD Protonix 40 mg daily at bedtime -Essential hypertension Zestril 2.5 mg daily at bedtime -Hyperlipidemia Zocor 40 mg daily at bedtime -Right brachial plexus injury secondary to fall, but some contracture of the right arm in the ulnar distribution. -Primary osteoarthritis and rheumatoid arthritis Continue pain medications -Sjogren syndrome -Full code Disposition: Home Plan - Discharge Summary New Discharge Prescriptions: New Ibuprofen [Motrin] 400 mg PO TID PRN #90 tab PRN Reason: Pain Acetaminophen Tab [Tylenol] 650 mg PO Q6HR PRN tab PRN Reason: Mild Pain Or Fever > 100.5 Lacosamide [Vimpat] 50 mg PO BID #60 tab Aspirin 81 mg PO DAILY tab traMADol HCl [Ultram] 50 mg PO TID tab Continue Simvastatin [Zocor] 40 mg PO HS Pantoprazole Sodium [Protonix] 40 mg PO HS DULoxetine HCL [Cymbalta] 30 mg PO DAILY lisinopriL [Zestril] 2.5 mg PO HS DULoxetine HCL [Cymbalta] 60 mg PO HS estradioL [estradioL (Once Weekly) 0.1mg Patch] 1 patch TRANSDERM SUTU Gabapentin [Neurontin] 400 mg PO TID Discontinued traMADol HCL 100 mg PO Q8H Ibuprofen [Motrin] 800 mg PO BID PRN PRN Reason: Fever And/ Or Pain Dextroamphetamine/Amphetamine [Adderall Xr 15 mg Capsule] 15 mg PO DAILY Discharge Medication List Pantoprazole Sodium [Protonix] 40 mg PO HS 05/18/15 [History] Simvastatin [Zocor] 40 mg PO HS 05/18/15 [History] DULoxetine HCL [Cymbalta] 30 mg PO DAILY 02/08/23 [History] DULoxetine HCL [Cymbalta] 60 mg PO HS 02/08/23 [History] Gabapentin [Neurontin] 400 mg PO TID 02/08/23 [History] estradioL [estradioL (Once Weekly) 0.1mg Patch] 1 patch TRANSDERM SUTU 02/08/23 [History] lisinopriL [Zestril] 2.5 mg PO HS 02/08/23 [History] Acetaminophen Tab [Tylenol] 650 mg PO Q6HR PRN tab 02/09/23 [Rx] Aspirin 81 mg PO DAILY tab 02/09/23 [Rx] Ibuprofen [Motrin] 400 mg PO TID PRN #90 tab 02/09/23 [Rx] Lacosamide [Vimpat] 50 mg PO BID #60 tab 02/09/23 [Rx] traMADol HCl [Ultram] 50 mg PO TID tab 02/09/23 [Rx] Follow up Appointment(s)/Referral(s): Arsenio Dyson DO [Primary Care Provider] - 1-2 days Matt Hester MD [Medical Doctor] - 1 Week Activity/Diet/Wound Care/Special Instructions: Seizure precautions. No automotive driving-till further notice
[2023-02-09] MEDS ORDERED: LACOSAMIDE 50 MG TABLET PO SCH (21:00)
[2023-02-12] MEDS ORDERED: ESTRADIOL TRANSDERM SCH (09:00)
== END 2023-02-09 18:44 | disposition home or self-care (01) ==
LOC: EC 09:38 → 6NMEDSUR 14:08
PROVIDERS: ADMIT Hospitalist; ATTEND Hospitalist
DX: R07.9 Chest pain, unspecified (principal); R42 Dizziness and giddiness; R53.1 Weakness; R29.6 Repeated falls; G45.4 Transient global amnesia; I10 Essential (primary) hypertension; E78.5 Hyperlipidemia, unspecified; K21.9 Gastro-esophageal reflux disease without esophagitis; F90.9 Attention-deficit hyperactivity disorder, unspecified type; I25.10 Atherosclerotic heart disease of native coronary artery without angina pectoris; G89.29 Other chronic pain; M54.9 Dorsalgia, unspecified; M35.00 Sjogren syndrome, unspecified; M06.9 Rheumatoid arthritis, unspecified; M19.91 Primary osteoarthritis, unspecified site; S14.3XXA Injury of brachial plexus, initial encounter; W19.XXXA Unspecified fall, initial encounter; R94.31 Abnormal electrocardiogram [ECG] [EKG]; Z72.821 Inadequate sleep hygiene; Z87.891 Personal history of nicotine dependence; Z79.899 Other long term (current) drug therapy; Z88.5 Allergy status to narcotic agent; Z82.49 Family history of ischemic heart disease and other diseases of the circulatory system
CPT/HCPCS: 96372; 99285; 36415; 95816; 93005; 93306; 80053; 80048; 84443; 82607; 82140; 82746; 83735; 84484; 85025 ×2; 85610; 85730; 83036; 71046; 93880; 70450; G0378 ×2; C8930; J1650; Q9957; 93351

== ENCOUNTER → 2024-02-14 | Outpatient (CLI) | payer MEDICARE, BC ==
--- NOTE | 2024-03-01 20:02 | HM ---
HOLTER MONITOR REPORT The patient was monitored for 72 hours. CLINICAL INFORMATION: The baseline rhythm is a sinus mechanism. The average rate 75 beats per minute, minimum 53, maximum 139 beats per minute. Ventricular ectopic activity burden was less than 1% with single PVCs. Supraventricular ectopic activity burden was less than 1% with single PACs. No pauses were noted. No atrial fibrillation was noted. MMCORKY / MAGDYN: [id number] /
== END | disposition home or self-care (01) ==
LOC: RADECHMAIN 08:07
PROVIDERS: ATTEND Family Medicine
DX: I49.3 Ventricular premature depolarization (principal); R00.9 Unspecified abnormalities of heart beat
CPT/HCPCS: 93225

== ENCOUNTER → 2024-03-13 | Outpatient (CLI) | payer MEDICARE, BC ==
--- NOTE | 2024-03-17 04:44 | MM ---
Reason for Exam: Screening (asymptomatic). Last mammogram was performed 1 year(s) and 10 month(s) ago. Patient History: Menarche at age 16. First Full-Term at age 33. Late child-bearing (after 32). Left ovary removed at age 42. Right ovary removed at age 42. Hysterectomy at age 42. Postmenopausal. Patient used Estrogen for 2 years. Maternal unspecified had breast cancer. Risk Values: Zaria 5 year model risk: 2.1%. NCI Lifetime model risk: 7.5%. Prior Study Comparison: 05/19/1993 Screening Mammogram, Unknown. 08/31/1999 Bilateral Screening Mammogram, [facility]. 05/13/2022 Bilateral MG 3D screening mammo w/cad, [facility]. Tissue Density: There are scattered areas of fibroglandular density. Findings: Analyzed By CAD. The pattern is symmetrical. There are are some axillary nodes that are visualized on the current examination due to improved technique No suspicious groups of microcalcifications, spiculated or lobular masses, architectural distortion or other secondary signs of malignancy are mammographically apparent. Overall Assessment: Benign, BI-RAD 2 Management: Screening Mammogram of both breasts in 1 year. A negative mammogram report should not preclude additional follow up of suspicious palpable abnormalities. Patient should continue monthly self breast exam. A clinical breast exam by your physician is recommended on an annual basis and results should be correlated with mammographic findings. Note on Zaria scores and lifetime risk: 1. A Zaria score greater than 3% is considered moderate risk. If this is the case, consider specialist referral to assess eligibility for a risk reducing agent. 2. If overall lifetime risk for the development of breast cancer is 20% or higher, the patient may qualify for future screening with alternating mammogram and breast MRI. [facility], , 03/17/2024 4:40 AM. Electronically signed and approved by: Arsenio Basilio D.O. Radiologis
== END | disposition home or self-care (01) ==
LOC: RADMAMWWP 14:39
PROVIDERS: ATTEND Obstetrics & Gynecology
DX: Z12.31 Encounter for screening mammogram for malignant neoplasm of breast (principal); Z90.722 Acquired absence of ovaries, bilateral; Z78.0 Asymptomatic menopausal state; Z80.3 Family history of malignant neoplasm of breast; R92.323 Mammographic fibroglandular density, bilateral breasts
CPT/HCPCS: 77063; 77067